=== PATIENT | female | born 1935 | race Caucasian/White ===

== ENCOUNTER 2019-05-25 11:09 | Outpatient (RCR) | payer MEDICARE, SELFPAY ==
[2019-02-24 11:40] LABS: INR 2.5; Prothrombin Time 26.4 Seconds (11.1-14.7)
[2019-04-13 12:26] LABS: Prothrombin Time 30.8 Seconds (11.1-14.7)
[2019-05-25 12:17] LABS: INR 2.3; Prothrombin Time 24.6 Seconds (11.1-14.7)
== END 2019-05-25 23:59 | disposition home or self-care (01) ==
LOC: ANHLAB 11:09
PROVIDERS: PCP Family Medicine; Visit Provider Internal Medicine Cardiovascular Disease
DX: Z51.81 Encounter for therapeutic drug level monitoring (principal); Z79.01 Long term (current) use of anticoagulants
CPT/HCPCS: 36415; 85610

== ENCOUNTER 2019-05-30 15:08 | Emergency (ER) | payer MEDICARE, SELFPAY ==
[2019-05-30 15:14] VITALS: BP 135/93; PULSE 76; RESP 20; TEMP 36.7; O2SAT 98
--- NOTE | 2019-05-30 15:40 | ED.FEMALEGU ---
HPI - Female Genitourinary General Chief complaint: Urogenital-Female Stated complaint: BURNING URINATION Source: patient Mode of arrival: ambulatory History of Present Illness HPI Narrative: 83-year-old female presents to urgent care with complaints of urinary frequency, urgency and pain since yesterday. Patient has been taking [id number] Azo with minimal relief. Patient denies fever, body aches, chills, nausea, vomiting or diarrhea. MD elicited complaint: dysuria Pertinent past history: recurrent UTIs Onset (ago): day(s) (1) Vaginal discharge: none Vaginal bleeding: none Relieving factors: none Associated symptoms: denies other symptoms Sexual activity: No Patient : No Related Data Home Medications Medication Instructions Recorded Confirmed calcium carbonate 600 mg (1,500 1 tablet PO BID 04/18/19 05/30/19 mg)-vitamin D3 200 unit tablet diltiazem HCl 240 mg 240 mg PO BID cap 04/18/19 05/30/19 capsule,extended release 24 hr furosemide 20 mg tablet 20 mg PO QAM 04/18/19 05/30/19 warfarin 4 mg tablet 4 mg PO DAILY 04/18/19 05/30/19 Allergies Allergy/AdvReac Type Severity Reaction Status Date / Time Penicillins Allergy Mild Rash Verified 05/30/19 15:23 erythromycin base Allergy Unknown Itching Verified 05/30/19 15:23 levothyroxine sodium Allergy Unknown Itching Verified 05/30/19 15:23 metoprolol Allergy Unknown Itching Verified 05/30/19 15:23 penicillin G Allergy Unknown Itching Verified 05/30/19 15:23 Sulfa (Sulfonamide Allergy Unknown Itching Verified 05/30/19 15:23 Antibiotics) Review of Systems Review of Systems: All systems reviewed & are unremarkable except as noted in HPI and below Constitutional: Constitutional: Denies chills and Denies fatigue ENT: Denies dysphagia, Denies dizziness, Denies epistaxis and Denies sore throat Cardiovascular: Cardiovascular: Denies chest pain, Denies rapid heart rate and Denies radiating jaw, neck or arm pain Respiratory: Respiratory: Denies cough, Denies dyspnea and Denies wheezing Gastrointestinal: Gastrointestinal: Denies abdominal pain, Denies constipation, Denies diarrhea, Denies nausea and Denies vomiting Genitourinary: Genitourinary: Denies abnormal vaginal bleeding, Reports nocturia, Reports dysuria, Denies flank pain, Denies urinary incontinence and Denies vaginal discharge Neurologic: Denies dizziness and Denies syncope [facility] Social History Social History Smoking status: Never smoker Alcohol intake: never Exam Const: General: healthy appearing and no acute distress Orientation/consciousness: patient oriented x3 Limitations: no limitations Resp: Effort & Inspection: normal respiratory effort Auscultation: clear to auscultation bilaterally Cardio: Rate: regular rate Rhythm: regular rhythm GI: GI Palp: Yes Soft to palpation, No Tenderness to palpation present (GI) and No Guarding due to palpation present (GI) Auscultation: normal bowel sounds : General: Yes bladder normal to palpation and Yes no CVA tenderness Back/Spine/Pelvis: Back: no CVA tenderness Skin: General skin exam: normal color Rashes: no rashes Neuro: General: patient oriented x3 and moves all extremities Psych: Mental Status: mental status grossly normal Affect: normal affect Attitude: cooperative Thought content: Yes Normal thought content present Course Vital Signs Vital signs: Vital Signs Temperature 36.7 C 05/30/19 15:14 Pulse Rate 76 05/30/19 15:14 Respiratory Rate 05/30/19 15:14 Blood Pressure 135/93 H 05/30/19 15:14 Pulse Oximetry 98 05/30/19 15:14 Temperature 36.7 C 05/30/19 15:14 Pulse Rate 76 05/30/19 15:14 Respiratory Rate 05/30/19 15:14 Blood Pressure 135/93 H 05/30/19 15:14 Pulse Oximetry 98 05/30/19 15:14 MDM - Female Genitourinary MDM Narrative Medical decision making narrative: Urinalysis results discussed with patient. Urine c
== END 2019-05-30 15:57 | disposition home or self-care (01) ==
PROVIDERS: Emergency Provider Nurse Practitioner Family; PCP Family Medicine
DX: N39.0 Urinary tract infection, site not specified (principal); I48.91 Unspecified atrial fibrillation; I10 Essential (primary) hypertension; E03.9 Hypothyroidism, unspecified; H26.9 Unspecified cataract
CPT/HCPCS: 81003; 87077; 87086; 87088; 87186; 99213; G0463

== ENCOUNTER 2020-08-26 09:57 | Emergency (ER) | payer MEDICARE, SELFPAY ==
[2020-08-26 10:08] VITALS: BP 148/63; PULSE 97; RESP 16; TEMP 36.9; O2SAT 94
--- NOTE | 2020-08-26 10:11 | ED.GENADULT ---
HPI - General Adult General Chief complaint: Urogenital-Female Stated complaint: Bladder complaint Time Seen by Provider: 08/26/20 10:12 Source: patient and RN notes reviewed Mode of arrival: ambulatory Limitations: no limitations History of Present Illness HPI narrative: 84-year-old female presents with urinary complaints for 1 day. Delaney reports increasing symptoms throughout the night. Dysuria consist of burning and urgency.? Azo, last today 05:00AM without relief. Denies fever. No concerns for STDs. Exacerbating factors urinating.? Denies hematuria, vaginal discharge, or vaginal bleeding. LMP post menopausal.? No flank pain. Denies nausea, vomiting, and abdominal pain.? Tolerating liquids well.? Remains active. The patient reports she have not been diagnosed with COVID-19. The patient reports she received [employer] COVID-19 vaccines. The patient reports she is not waiting for the results of a COVID-19 lab test. The patient reports she do not have chills, weakness, or fatigue. The patient reports she do not have a new or worsening cough or shortness of breath. Denies chest pain. The patient reports she do not have any rhinorrhea, congestion, sore throat, loss of taste or smell, and diarrhea. Denies recent traveling. Denies concerns for COVID-19 or exposures. At this time, patient is not suspected of having COVID-19. Some parts of this dictation were generated by voice recognition software and may contain typographical and/or grammatical inaccuracies. Related Data Home Medications Medication Instructions Recorded Confirmed calcium carbonate 600 mg (1,500 1 tablet PO BID 04/18/19 08/26/20 mg)-vitamin D3 200 unit tablet furosemide 20 mg tablet 20 mg PO QAM 04/18/19 08/26/20 warfarin 4 mg tablet 4 mg PO DAILY 04/18/19 08/26/20 Allergies Allergy/AdvReac Type Severity Reaction Status Date / Time Penicillins Allergy Mild Rash Verified 07/03/20 10:22 erythromycin base Allergy Unknown Itching Verified 07/03/20 10:22 levothyroxine sodium Allergy Unknown Itching Verified 07/03/20 10:22 metoprolol Allergy Unknown Itching Verified 07/03/20 10:22 penicillin G Allergy Unknown Itching Verified 07/03/20 10:22 Sulfa (Sulfonamide Allergy Unknown Itching Verified 07/03/20 10:22 Antibiotics) Review of Systems Review of Systems: Narrative: CONSTITUTIONAL: Denies fever, chills, sweats. EYES: Denies visual changes, redness, discharge. ENT: Denies rhinorrhea, congestion, sore throat, otalgia. CARDIOVASCULAR: Denies chest pain, palpitations, edema. RESPIRATORY: Denies dyspnea, wheezing, cough. GASTROINTESTINAL: Denies abdominal pain, nausea, vomiting, diarrhea. GENITOURINARY: Complains of dysuria (burning and urgency). Denies frequency, hematuria, abnormal discharge. SKIN: Denies rash or itching. MUSCULOSKELETAL: Denies acute back pain, joint pain, or myalgia. NEUROLOGIC: Denies numbness or focal weakness. PSYCHIATRIC: Denies anxiety or depression. All systems reviewed & are unremarkable except as noted in HPI and below. [facility] Past Medical History Medical History (Updated 08/27/20 @ 00:00 by [employer]) Cataract wear glasses Chronic a-fib Chronic kidney disease, stage III (moderate) [place] (hard of hearing) Hypertensive chronic kidney disease with stage 1 through stage 4 chronic kidney disease, or unspecified chronic kidney disease Hypothyroidism [facility] (current) use of anticoagulants Mixed hyperlipidemia Wrist fracture, right Surgical History Surgical History (Updated 08/26/20 @ 10:44 by GOOD Montelongo) History of eye surgery cataract surgery History of surgery on wrist RT Family History Family History (Updated 08/26/20 @ 10:37 by GOOD Montelongo) Father Bone cancer Mother Heart disease Social History Social History (Updated 08/26/20 @ 10:36 by GOOD Montelongo) Smoking status: Never smoker Tobacco type: cigarettes Second hand tobacco s
--- NOTE | 2020-08-26 10:33 | PC.NURSE ---
Pt drinking water, awaiting urine sample.
== END 2020-08-26 11:27 | disposition home or self-care (01) ==
PROVIDERS: Emergency Provider Nurse Practitioner Family; PCP Family Medicine
DX: R30.0 Dysuria (principal); I48.20 Chronic atrial fibrillation, unspecified; I13.10 Hypertensive heart and chronic kidney disease without heart failure, with stage 1 through stage 4 chronic kidney disease, or unspecified chronic kidney disease; N18.30 Chronic kidney disease, stage 3 unspecified; E03.9 Hypothyroidism, unspecified; E78.2 Mixed hyperlipidemia; Z79.01 Long term (current) use of anticoagulants
CPT/HCPCS: 81003; 87077; 87086; 87186; 99213; G0463

== ENCOUNTER 2020-12-05 11:14 | Outpatient (RCR) | payer MEDICARE, SELFPAY ==
[2020-09-12 07:55] LABS: Hematocrit 45.9 % (37.0-47.0); Hemoglobin 14.4 g/dL (12.0-15.0); Mean Corpuscular HGB Conc 31.4 g/dl (32-36); Mean Corpuscular Hemoglobin 29.4 pg (26-34); Mean Corpuscular Volume 93.7 fl (80-100); Mean Platelet Volume 11.8 fl (7.4-10.4); Platelet Count Result 218 k/mm3 (150-375); White Blood Count 8.8 K/mm3 (4.5-10.0)
[2020-09-12 08:05] LABS: INR 3.1; Prothrombin Time 32.8 Seconds (11.1-14.7)
[2020-09-12 08:12] LABS: Alanine Aminotransferase 16 U/L (4-35); Albumin Level 4.2 g/dL (3.5-5.1); Alkaline Phosphatase 72 U/L (38-126); Anion Gap 11 mmol/L (8-16); Aspartate Amino Transferase 28 U/L (14-36); Bilirubin,Total 0.7 mg/dL (0.2-1.3); Blood Urea Nitrogen 31 mg/dL (7-17); Calcium 9.3 mg/dL (8.4-10.2); Carbon Dioxide 24 mmol/L (22-30); Chloride 105 mmol/L (98-107); Estimated Glomerular Filt Rate 33; Glucose 122 mg/dL (65-105); Potassium 4.7 mmol/L (3.4-5.0); Sodium 140 mmol/L (137-145)
[2020-10-24 12:14] LABS: INR 3.6; Prothrombin Time 34.6 Seconds (11.1-14.7)
[2020-12-05 12:23] LABS: INR 2.9; Prothrombin Time 29.5 Seconds (11.1-14.7)
== END 2020-12-11 23:59 | disposition home or self-care (01) ==
LOC: ANHLAB 11:14
PROVIDERS: PCP Family Medicine; Referring Provider Family Medicine; Visit Provider Internal Medicine Cardiovascular Disease
DX: Z51.81 Encounter for therapeutic drug level monitoring (principal); I48.19 Other persistent atrial fibrillation; Z79.01 Long term (current) use of anticoagulants
CPT/HCPCS: 36415; 80053; 84443; 85027; 85610

== ENCOUNTER 2021-04-17 12:07 | Outpatient (RCR) | payer MEDICARE, SELFPAY ==
[2021-01-23 11:33] LABS: Alanine Aminotransferase 18 U/L (4-35); Albumin Level 4.3 g/dL (3.5-5.1); Alkaline Phosphatase 73 U/L (38-126); Anion Gap 11 mmol/L (8-16); Aspartate Amino Transferase 23 U/L (14-36); Bilirubin,Total 0.6 mg/dL (0.2-1.3); Blood Urea Nitrogen 28 mg/dL (7-17); Calcium 9.1 mg/dL (8.4-10.2); Carbon Dioxide 25 mmol/L (22-30); Chloride 104 mmol/L (98-107); Estimated Glomerular Filt Rate 43; Glucose 125 mg/dL (65-110); Potassium 4.2 mmol/L (3.4-5.0); Sodium 140 mmol/L (137-145)
[2021-01-23 11:36] LABS: INR 2.5; Prothrombin Time 26.3 Seconds (11.1-14.7)
[2021-03-04 13:09] LABS: INR 2.5; Prothrombin Time 26.6 Seconds (11.1-14.7)
[2021-04-17 12:31] LABS: INR 2.3; Prothrombin Time 24.7 Seconds (11.1-14.7)
== END 2021-04-23 23:59 | disposition home or self-care (01) ==
LOC: ANHLAB 12:07
PROVIDERS: PCP Family Medicine; Referring Provider Family Medicine; Visit Provider Internal Medicine Cardiovascular Disease
DX: Z51.81 Encounter for therapeutic drug level monitoring (principal); I48.19 Other persistent atrial fibrillation; Z79.01 Long term (current) use of anticoagulants
CPT/HCPCS: 36415; 80053; 84443; 85610

== ENCOUNTER 2021-07-30 11:11 | Outpatient (RCR) | payer MEDICARE, SELFPAY ==
[2021-06-05 14:44] LABS: INR 2.4; Prothrombin Time 25.7 Seconds (11.1-14.7)
[2021-07-30 11:53] LABS: INR 1.9; Prothrombin Time 21.4 Seconds (11.1-14.7)
== END 2021-09-03 23:59 | disposition home or self-care (01) ==
LOC: ANHLAB 11:11
PROVIDERS: PCP Family Medicine; Visit Provider Family Medicine
DX: Z51.81 Encounter for therapeutic drug level monitoring (principal); I48.19 Other persistent atrial fibrillation; Z79.01 Long term (current) use of anticoagulants
CPT/HCPCS: 36415; 85610

== ENCOUNTER 2021-08-21 10:09 | Emergency (ER) | payer MEDICARE, SELFPAY ==
[2021-08-21 10:18] VITALS: BP 132/74; PULSE 77; RESP 20; TEMP 36.2; O2SAT 93
--- NOTE | 2021-08-21 10:23 | ED.FEMALEGU ---
HPI - Female Genitourinary General Chief complaint: Urogenital-Female Stated complaint: uti symptoms Time Seen by Provider: 08/21/21 10:25 Source: patient Mode of arrival: ambulatory Limitations: no limitations History of Present Illness HPI Narrative: Delaney Phoenix is a 85-year-old female with a PMH of A. fib, chronic anticoagulation, hypokalemia, hypothyroid, who comes to [facility] with complaints of dysuria that started on Wednesday; she took Azo yesterday this has not changed her symptoms Related Data Home Medications Medication Instructions Recorded Confirmed calcium carbonate 600 mg-vitamin 1 tablet PO BID 04/18/19 08/21/21 D3 5 mcg (200 unit) tablet warfarin 4 mg tablet 4 mg PO DAILY 04/18/19 08/21/21 Allergies Allergy/AdvReac Type Severity Reaction Status Date / Time Penicillins Allergy Mild Rash Verified 08/21/21 10:18 erythromycin base Allergy Unknown Itching Verified 08/21/21 10:18 levothyroxine sodium Allergy Unknown Itching Verified 08/21/21 10:18 metoprolol Allergy Unknown Itching Verified 08/21/21 10:18 penicillin G Allergy Unknown Itching Verified 08/21/21 10:18 Sulfa (Sulfonamide Allergy Unknown Itching Verified 08/21/21 10:18 Antibiotics) Review of Systems Review of Systems: CONSTITUTIONAL: Denies fever, chills, sweats. EYES: Denies visual changes, redness, discharge. ENT: Denies rhinorrhea, congestion, sore throat, otalgia. CARDIOVASCULAR: Denies chest pain, palpitations, edema. RESPIRATORY: Denies dyspnea, wheezing, cough GASTROINTESTINAL: Denies abdominal pain, nausea, vomiting, diarrhea. GENITOURINARY: Has dysuria, hematuria, abnormal discharge SKIN: Denies rash or itching. NEUROLOGIC: Denies numbness, or focal weakness. PSYCHIATRIC: Denies anxiety or depression. 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 Mixed hyperlipidemia Obesity Venous stasis Wrist fracture, right Surgical History Surgical History History of eye surgery cataract surgery History of surgery on wrist RT Family History Family History Father Bone cancer Mother Heart disease Social History Social History Smoking status: Never smoker Tobacco type: cigarettes Second hand tobacco smoke exposure: No Alcohol intake: never Substance use: never Substance use type: does not use Gender identity (if verbalized by the patient): Female Sexual Orientation (if Verbalized by the Patient): Straight or Heterosexual Exam Narrative: GENERAL: This is a well-nourished, well-developed patient, in mild distress. HEAD: normocephalic, atraumatic. EYES: Sclera clear/white. Vision is grossly intact. EARS: External ears normal, . Hearing grossly intact. NOSE: External nose normal without nasal discharge, nares without redness, no rhinorrhea. THROAT: Mucous membranes moist, NECK: Neck supple, non-tender CARDIOVASCULAR: Regular rate and rhythm with S3 heart sound, no gallops, or rubs. RESPIRATORY: Clear to auscultation. Breath sounds equal bilaterally. No wheezes, rales, or rhonchi. GASTROINTESTINAL: Abdomen soft, rotund SKIN: warm, intact with no suspicious lesions or rash, good texture and turgor. NEURO: awake, alert, and oriented to person, place and time. There were no obvious focal neurologic abnormalities. Steady gait EXTREMITIES: Normal range of motion. BACK: Nontender without deformity Course Course Emergency Course: Patient comes to [facility] with complaints of dy
== END 2021-08-21 10:53 | disposition home or self-care (01) ==
PROVIDERS: Emergency Provider Nurse Practitioner; PCP Family Medicine
DX: N30.90 Cystitis, unspecified without hematuria (principal); I48.91 Unspecified atrial fibrillation; I12.9 Hypertensive chronic kidney disease with stage 1 through stage 4 chronic kidney disease, or unspecified chronic kidney disease; N18.30 Chronic kidney disease, stage 3 unspecified; E03.9 Hypothyroidism, unspecified; Z79.01 Long term (current) use of anticoagulants; E78.2 Mixed hyperlipidemia; E66.9 Obesity, unspecified; Z68.41 Body mass index [BMI] 40.0-44.9, adult; I87.8 Other specified disorders of veins
CPT/HCPCS: 81003; 87077; 87086; 87186; 99213; G0463

== ENCOUNTER 2021-09-02 10:01 | Emergency (ER) | payer MEDICARE, SELFPAY ==
--- NOTE | 2021-09-02 10:09 | ED.FEMALEGU ---
HPI - Female Genitourinary General Chief complaint: Urogenital-Female Stated complaint: uti symptoms Time Seen by Provider: 09/02/21 10:10 Source: patient and RN notes reviewed Mode of arrival: ambulatory Limitations: no limitations History of Present Illness HPI Narrative: 85-year-old female presented for complaint of urinary urgency and dysuria for about 4 days She states she was treated for UTI on 08/21/2021, completed the 5 days of antibiotics (Keflex) and symptoms returned about 3 days later. She has been taking Azo. Denies nausea, vomiting, hematuria, flank pain, abdominal pain, fevers or chills. Hx CKD, chronic afib, on anticoagulation. Related Data Home Medications Medication Instructions Recorded Confirmed calcium carbonate 600 mg-vitamin 1 tablet PO BID 04/18/19 08/21/21 D3 5 mcg (200 unit) tablet (Calcium 600 + D(3)) warfarin 4 mg tablet (Coumadin) 4 mg PO DAILY 04/18/19 08/21/21 Allergies Allergy/AdvReac Type Severity Reaction Status Date / Time Penicillins Allergy Mild Rash Verified 08/21/21 10:18 erythromycin base Allergy Unknown Itching Verified 08/21/21 10:18 levothyroxine sodium Allergy Unknown Itching Verified 08/21/21 10:18 metoprolol Allergy Unknown Itching Verified 08/21/21 10:18 penicillin G Allergy Unknown Itching Verified 08/21/21 10:18 Sulfa (Sulfonamide Allergy Unknown Itching Verified 08/21/21 10:18 Antibiotics) Review of Systems Review of Systems: CONSTITUTIONAL: Denies body aches, fever, chills, or sweats. CARDIOVASCULAR: Denies chest pain, palpitations, or edema. RESPIRATORY: Denies cough or dyspnea. GASTROINTESTINAL: Denies abdominal pain, nausea, vomiting, or diarrhea. GENITOURINARY: Reports dysuria, frequency, urgency, denies hematuria, flank pain SKIN: Denies rash, itching, or wounds. MUSCULOSKELETAL: Denies back pain or myalgia. 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 Mixed hyperlipidemia Obesity Venous stasis Wrist fracture, right Surgical History Surgical History History of eye surgery cataract surgery History of surgery on wrist RT Family History Family History Father Bone cancer Mother Heart disease Social History Social History Smoking status: Never smoker Tobacco type: cigarettes Second hand tobacco smoke exposure: No Alcohol intake: never Substance use: never Substance use type: does not use Gender identity (if verbalized by the patient): Female Sexual Orientation (if Verbalized by the Patient): Straight or Heterosexual Comments At time of signature, I have reviewed and agree with nursing past medical, surgical, social and family history unless otherwise noted. Please see nursing chart for further information. There is no relevant family history pertinent to the presenting complaint Exam Narrative: GENERAL: Well-appearing and in no acute distress. HEAD: Normocephalic EYES: EOMI. ENT: Mucous membranes pink and moist. NECK: Normal AROM. Supple. CHEST: No respiratory distress. Clear to auscultation. HEART: Irregular rhythm ABDOMEN: Soft, nontender, nondistended, large, normal active bowel sounds. No CVA tenderness MUSCULOSKELETAL: No bony tenderness. SKIN: Warm, dry, no rash. NEURO: No focal deficits. Alert and oriented x3. Gait steady. PSYCH: Normal affect. Course Course Emergency Course: Patient is aware of diagnosis, understands and agrees to treatment plan. Anticipatory
[2021-09-02 10:12] VITALS: BP 130/61; PULSE 81; RESP 16; TEMP 35.9; O2SAT 96
== END 2021-09-02 10:43 | disposition home or self-care (01) ==
PROVIDERS: Emergency Provider Nurse Practitioner Family; PCP Family Medicine
DX: N39.0 Urinary tract infection, site not specified (principal); I48.91 Unspecified atrial fibrillation; I12.9 Hypertensive chronic kidney disease with stage 1 through stage 4 chronic kidney disease, or unspecified chronic kidney disease; N18.30 Chronic kidney disease, stage 3 unspecified; E03.9 Hypothyroidism, unspecified; E78.2 Mixed hyperlipidemia; E66.9 Obesity, unspecified
CPT/HCPCS: 81003; 87077; 87086; 87186; 99213; G0463

== ENCOUNTER 2021-11-11 10:55 | Outpatient (RCR) | payer MEDICARE, SELFPAY ==
[2021-09-30 11:33] LABS: INR 2.5
[2021-11-11 11:34] LABS: Prothrombin Time 22.4 Seconds (11.1-14.7)
== END 2021-12-29 23:59 | disposition home or self-care (01) ==
LOC: ANHLAB 10:55
PROVIDERS: PCP Family Medicine; Visit Provider Internal Medicine Cardiovascular Disease
DX: I48.19 Other persistent atrial fibrillation (principal)
CPT/HCPCS: 36415; 85610

== ENCOUNTER 2022-03-11 12:58 | Outpatient (RCR) | payer MEDICARE, SELFPAY ==
[2022-01-15 12:16] LABS: INR 2.5
[2022-03-11 13:56] LABS: INR 2.8; Prothrombin Time 28.7 Seconds (11.1-14.7)
== END 2022-04-15 23:59 | disposition home or self-care (01) ==
LOC: ANHLAB 12:58
PROVIDERS: PCP Family Medicine; Visit Provider Internal Medicine Cardiovascular Disease
DX: I48.19 Other persistent atrial fibrillation (principal)
CPT/HCPCS: 36415; 85610

== ENCOUNTER 2022-04-11 19:57 | Inpatient (IN) | payer MEDICARE, SELFPAY ==
[2022-04-11] VITALS (31 sets, daily range): BP systolic 109–146; BP diastolic 52–84; PULSE 69–91; RESP 16–22; TEMP 36.3–36.8; O2SAT 85–100
--- NOTE | ~2022-04-11 | XR_ITS ---
EXAMINATION: XR chest 2V DATE: 04/15/2022 10:22 INDICATION: Congestive heart failure TECHNIQUE: Frontal and lateral views of the chest are obtained COMPARISON: 04/11/2022 FINDINGS: Cardiomegaly is noted. There is a diffuse interstitial pattern with interval improvement. S mall pleural effusions are present. There is no pneumothorax. Bibasilar airspace opacities persist bu t have improved. IMPRESSION: 1. Cardiomegaly with improving pulmonary edema. 2. Small pleural effusions. 3. Bibasilar airspace opacities with improvement, likely atelectasis. Reviewed, dictated and finalized at location B. 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
--- NOTE | ~2022-04-11 | XR_ITS ---
EXAMINATION: XR chest 1V portable Exam Date/Time: 04/11/2022 20:25 [employer] HISTORY: dyspnea X 3 DAYS, HX AFIB Comparison: 02/16/2014. RESULT: Lines, tubes, and devices: None. Lungs and pleura: The patient is rotated to the right. Bilateral reticular opacities with indistinct vessels. Linear and subsegmental right basilar opacities. Cardiomediastinal silhouette: Stable. Other: No acute osseous or upper abdominal finding. IMPRESSION: Pulmonary edema. Bibasilar atelectasis/consolidation. Reviewed, dictated and finalized at location K. E [employer]
--- NOTE | 2022-04-11 20:06 | ECG_ITS ---
Measurements Intervals [place] Rate: 83 P: [place]: 0 QRS: -9 QRSD: 72 T: 0 QT: 370 QTc: 435 Interpretive Statements ATRIAL FIBRILLATION VENTRICULAR PREMATURE COMPLEX LOW QRS VOLTAGE IN PRECORDIAL LEADS BORDERLINE R WAVE PROGRESSION, ANTERIOR LEADS CONSIDER INFERIOR INFARCT, AGE INDETERMINATE BASELINE ARTIFACT- I, II, III, AVR, AVL, V2, V5 ABNORMAL ECG NO PREVIOUS ECG AVAILABLE FOR COMPARISON Electronically Signed On 04-12-2022 8:01:03 BRANCH OFFICER by Justyn Rose D.O.
[2022-04-11 20:20] LABS: Basophils Percent Auto 0.4 % (0.2-1.2); Eosinophils Absolute Auto 0.2 K/mm3 (0-0.3); Eosinophils Percent Auto 1.8 % (0-4.4); Hematocrit 41.8 % (37.0-47.0); Immature Granulocyte Absolute 0.02 K/mm3 (0.00-0.031); Immature Granulocyte Percent A 0.2 % (0-0.5); Lymphocytes Absolute Auto 3.71 K/mm3 (0.9-3.2); Lymphocytes Percent Auto 35.8 % (18.3-44.2); Mean Corpuscular HGB Conc 31.1 g/dl (32-36); Mean Corpuscular Hemoglobin 29.5 pg (26-34); Mean Platelet Volume 10.8 fl (7.4-10.4); Monocytes Absolute Auto 0.9 K/mm3 (0.1-0.6); Neutrophils Absolute Auto 5.5 K/mm3 (1.3-6.7); Neutrophils Percent Auto 52.8 % (45.5-73.1); Platelet Count Result 269 k/mm3 (150-375); Red Cell Distribution Width 15.1 % (11.5-14.5); White Blood Count 10.4 K/mm3 (4.5-10.0)
--- NOTE | 2022-04-11 20:30 | PC.NURSE ---
when moving pt to bed, pt was OOB, having trouble catching breath o2 sat 85% placed on 2l NC, Sat increased to 96%
[2022-04-11 20:34] LABS: Alanine Aminotransferase 25 U/L (6-35); Albumin Level 4.2 g/dL (3.5-5.1); Alkaline Phosphatase 87 U/L (38-126); Anion Gap 6 mmol/L (8-16); Aspartate Amino Transferase 36 U/L (14-36); Bilirubin,Total 0.6 mg/dL (0.2-1.3); Blood Urea Nitrogen 27 mg/dL (7-17); Calcium 8.6 mg/dL (8.4-10.2); Carbon Dioxide 27 mmol/L (22-30); Chloride 109 mmol/L (98-107); Estimated Glomerular Filt Rate 47; Glucose 133 mg/dL (65-110); Sodium 142 mmol/L (137-145)
--- NOTE | 2022-04-11 20:41 | ED.GENADULT ---
HPI - General Adult General Chief complaint: Shortness of Breath/Dyspnea Stated complaint: shortness of breath x 3 days Time Seen by Provider: 04/11/22 20:07 History of Present Illness HPI narrative: This is an 86-year-old female with history of high blood pressure presenting ED with shortness of breath. She has been having progressively worse shortening breath over the last 3 days. She denies fever, chills, chest pain, abdominal pain, urinary symptoms. She has chronic lower extremity edema due to venous insufficiency. She is on warfarin for atrial fibrillation. Related Data Home Medications Medication Instructions Recorded Confirmed calcium carbonate 600 mg-vitamin 1 tablet PO BID 04/18/19 08/21/21 D3 5 mcg (200 unit) tablet (Calcium 600 + D(3)) warfarin 4 mg tablet (Coumadin) 4 mg PO DAILY 04/18/19 08/21/21 Allergies Allergy/AdvReac Type Severity Reaction Status Date / Time Penicillins Allergy Mild Rash Verified 08/21/21 10:18 erythromycin base Allergy Unknown Itching Verified 08/21/21 10:18 levothyroxine sodium Allergy Unknown Itching Verified 08/21/21 10:18 metoprolol Allergy Unknown Itching Verified 08/21/21 10:18 penicillin G Allergy Unknown Itching Verified 08/21/21 10:18 Sulfa (Sulfonamide Allergy Unknown Itching Verified 08/21/21 10:18 Antibiotics) [facility] Past Medical History Medical History Cataract wear glasses Chronic a-fib Chronic kidney disease, stage III (moderate) [place] (hard of hearing) Hypertensive chronic kidney disease with stage 1 through stage 4 chronic kidney disease, or unspecified chronic kidney disease Hypothyroidism [facility] (current) use of anticoagulants Mixed hyperlipidemia Obesity Venous stasis Wrist fracture, right Surgical History Surgical History History of eye surgery cataract surgery History of surgery on wrist RT Family History Family History Father Bone cancer Mother Heart disease Social History Social History Smoking status: Never smoker Tobacco type: cigarettes Second hand tobacco smoke exposure: No Alcohol intake: never Substance use: never Substance use type: does not use Gender identity (if verbalized by the patient): Female Sexual Orientation (if Verbalized by the Patient): Straight or Heterosexual Exam Narrative: APPEARANCE: No apparent distress. Head: atraumatic. EYES: EOMI, NOSE: Atraumatic NECK: Trachea midline RESPIRATORY: patient has 3-4 word dyspnea, scattered expiratory wheezing, bibasilar rales CARDIOVASCULAR Irregularly irregular, chronic peripheral edema with sclerosis of the skin ABDOMINAL: Non-distended, nontender no guarding or rebound MUSCULOSKELETAl: No obvious deformities NEURO: Alert. Moving 4/4 extremities SKIN:: Warm, dry. Normal color PSYCHIATRIC: Normal affect Course Vital Signs Vital signs: Vital Signs Temperature 98.2 F 04/11/22 20:02 Pulse Rate 91 04/11/22 20:02 Respiratory Rate 20 04/11/22 20:02 Blood Pressure 142/58 H 04/11/22 20:02 Pulse Oximetry 93 04/11/22 20:02 Oxygen Delivery Room Air 04/11/22 20:02 Temperature 98.2 F 04/11/22 20:02 Pulse Rate 73 04/11/22 22:01 Respiratory Rate 16 04/11/22 22:00 Blood Pressure 120/65 04/11/22 22:01 Pulse Oximetry 98 04/11/22 22:01 Oxygen Delivery Nasal Cannula 04/11/22 20:19 Oxygen Flow Rate 4 04/11/22 20:19 Medical Decision Making MDM Narrative Medical decision making narrative: DDX includes but is not limited to: CHF, COPD, pneumonia, viral illness, pulmonary embolism Co-morbidities complicating care: hypertension, atrial fibrillation External Chart Review: None Hx from independent Sources: Niece -Neena, nephew-Garfield Discussion of Management: marti di
[2022-04-11 20:56] LABS: Influenza A QL RT-PCR Negative (Negative); Influenza B QL RT-PCR Negative (Negative); RSV RNA, RT-PCR Negative (Negative); SARS-CoV-2 RNA PCR Negative
[2022-04-11 21:18] LABS: NT Pro B Type Natriuretic Pept 1100 pg/mL (5-100); Troponin I < 0.012 ng/mL (0.000-0.034)
[2022-04-11 21:23] LABS: INR 3.2; Partial Thromboplastin Time 43.9 SECONDS (22.3-36.8); Prothrombin Time 32.1 Seconds (11.1-14.7)
[2022-04-11] MEDS: FUROSEMIDE INJ 40 MG/4 ML VIAL IV PUSH (22:16)
[2022-04-12] VITALS (8 sets, daily range): BP systolic 119–142; BP diastolic 59–66; PULSE 64–75; RESP 16–22; TEMP 36.2–36.6; O2SAT 91–96
[2022-04-12 00:03] LABS: Troponin I < 0.012 ng/mL (0.000-0.034)
--- NOTE | 2022-04-12 01:00 | ADMGEN ---
This patient, Delaney Aguirre, was admitted to [facility] Surg Room 305-02 at 2335. Patient/family oriented to hospital policies and general routines including ID bracelet, bed and alarms, visiting hours, pain management, procedures, bathroom and other care routines, personal items, smoking policy, room service/diet, and visiting hours. Information on how to activate the Rapid Response Team has been discussed. Patient/Family are encouraged to report perceived risks to care and to ask questions if they do not understand what they are told or what they should do.
--- NOTE | 2022-04-12 01:09 | PM.IMHP ---
H&P: HPI History of Present Illness Date/Time: 04/11/22 23:50 Chief Complaint: Shortness of breath Narrative: Pleasant 86-year-old female with a past medical history of hypothyroidism, chronic kidney disease stage 3 and chronic atrial fibrillation on chronic anticoagulation Coumadin who presented to the ER with shortness of breath. The patient reports that she has actually been having progressive shortness of breath for at least 3 weeks but it acutely worsened about 3 days ago. She reports that she has chronic lower extremity swelling and does not pay much attention to her lower extremity so she does not know for edema is worse. She thinks that her shoes may be a little bit tighter than usual. She definitely thinks that her pants are tighter than usual. She states that she has a scale at home but it is been broken for over a year so she does not weighed herself. She states that her shortness of breath is worse with activity and that she cannot sleep well over the last couple of weeks due to orthopnea. The only time she is getting any sleep is if she sits in her recliner. She does not know if she snores. She states that her shortness of breath has become so bad that she cannot or for more than a couple of minutes without extreme were could breathing. She denies palpitations, cough or congestion. She has been compliant with her cardiac medications. Although in the past she has been noncompliant with close monitoring of her INR. Her last echocardiogram was in 2006. She follows with Dr. Chloé Toth. She does not have a prior history of heart failure. Review of Systems Review of Systems: 12 systems were reviewed with pertinent positives and negatives per HPI. Except as documented in the HPI, all other systems were reviewed and are negative. [facility] Past Medical History Medical History (Updated 04/12/22 @ 08:33 by Gaviota Ibarra DO) Chronic a-fib Chronic kidney disease, stage III (moderate) [place] (hard of hearing) Hypothyroidism [facility] (current) use of anticoagulants Mixed hyperlipidemia Patient refuses statins Obesity Venous stasis Wrist fracture, right Surgical History Surgical History (Updated 04/12/22 @ 08:16 by Gaviota Ibarra DO) History of tonsillectomy and adenoidectomy Status post cataract extraction of both eyes with insertion of intraocular lens Status post open reduction with internal fixation of fracture Right wrist fracture Family History Family History Father Bone cancer Mother Heart disease Social History Social History (Updated 04/12/22 @ 08:15 by Gaviota Ibarra DO) Social History: She lives in her own home. She was to her 1st for 23 years before he and got remarried in for 26 years prior to being in 2005. She never had any children. 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 Code status: DNR/DNI (however the patient would be amendable to synchronized cardioversion in the setting of acute cardiac arrhythmia. She would not want cardiopulmonary resuscitation in the set of cardiopulmonary arrest.) Healthcare power of windows desktop support: Padmaja Ocampo (the patient's sister who is 60 years old.) Smoking status: Never smoker Second hand tobacco smoke exposure: No Alcohol intake: never Substance use: never Substance use type: does not use Lack of Transportation: No Lack of Food: Never True Current Housing: I Have Housing Concerned About Future Housing: No Difficulty Paying Gas/Electric Bills: No Difficulty Paying for Meds: No Currently Unemployed: No Education: High School Diploma/GED Difficulty w/ Childcare or Family Care: No Additional occupation/education comments: 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 Gender identity (if verbalized by the patient): Female Sexual Orientation (if Verbal
[2022-04-12] MEDS: TELMISARTAN 40 MG TABLET PO (08:34)
[2022-04-12] MEDS: FUROSEMIDE INJ 40 MG/4 ML VIAL IV PUSH ×2 (08:34→16:30)
[2022-04-12] MEDS: THYROID 30 MG TABLET 60 MG PO (08:34)
[2022-04-12] MEDS: ENOXAPARIN 40 MG/0.4 ML SYRINGE SUB-Q (08:35)
[2022-04-12 09:37] LABS: Hematocrit 42.6 % (37.0-47.0); Mean Corpuscular HGB Conc 30.5 g/dl (32-36); Mean Corpuscular Hemoglobin 29.5 pg (26-34); Mean Corpuscular Volume 96.6 fl (80-100); Mean Platelet Volume 10.9 fl (7.4-10.4); Platelet Count Result 247 k/mm3 (150-375); Red Blood Count 4.41 M/mm3 (4.2-5.4)
[2022-04-12 09:51] LABS: INR 3.4; Prothrombin Time 33.3 Seconds (11.1-14.7)
[2022-04-12 09:52] LABS: Anion Gap 8 mmol/L (8-16); Blood Urea Nitrogen 23 mg/dL (7-17); Calcium 8.5 mg/dL (8.4-10.2); Carbon Dioxide 31 mmol/L (22-30); Chloride 105 mmol/L (98-107); Estimated Glomerular Filt Rate 47; Glucose 106 mg/dL (65-110); Magnesium 2.4 mg/dL (1.6-2.3); Potassium 3.7 mmol/L (3.4-5.0); Sodium 144 mmol/L (137-145)
--- NOTE | 2022-04-12 12:18 | PM.CNCAR ---
Assessment and Plan Assessment and plan (1) CHF (congestive heart failure): Code(s): I50.9 - Heart failure, unspecified Status: Acute Assessment and Plan: 86-year-old female with hypertension, persistent atrial fibrillation on chronic anticoagulation with warfarin, CKD, hypothyroidism on thyroxine replacement. Patient admitted to the hospital with worsening shortness of breath. Clinical presentation consistent with CHF. EKG shows atrial fibrillation with controlled ventricular response. Troponin x2 [place] [address]. INR 3.2 at presentation. Chest x-ray shows Pulmonary edema. Bibasilar atelectasis/consolidation. TSH elevated at 7.45. Influenza and COVID-19 negative. -IV diuresis with furosemide. Monitor electrolytes and renal function. Switch to p.o. furosemide when volume status improves. She will need maintenance diuresis as an outpatient. - Patient is currently rate controlled with diltiazem, and anticoagulated with warfarin. Echocardiogram with Doppler is pending. If patient has LV systolic dysfunction, then switch diltiazem to beta-юлия. Patient has been on chronic anticoagulation with warfarin. She states that she was offered 1 of the DOACs in the past but chose to stay on warfarin. - patient has hypothyroidism and is on thyroxine replacement. Current TSH is elevated. Optimize thyroxine supplementation as necessary. Management as per primary team. (2) Atrial fibrillation with controlled ventricular response: Code(s): I48.91 - Unspecified atrial fibrillation Status: Acute Assessment and Plan: see management above. History of Present Illness History of Present Illness Consult date/time: 04/12/22 12:18 Reason For Visit: CHF NEW Narrative: DATE OF CONSULT: 04/12/2022 REASON FOR CONSULT: CHF REQUESTING PHYSICIAN:Gaviota Ibarra DO CHIEF COMPLAINT:Worsening shortness of breath HPI: 86-year-old female with hypertension, persistent atrial fibrillation on chronic anticoagulation with warfarin, CKD, hypothyroidism on thyroxine replacement. Patient follows up with Dr. Toth for cardiovascular care. She presented to [facility] on 04/11/2022 with worsening shortness of breath. Patient states that she has been experiencing worsening dyspnea on exertion for about 3 weeks, which worsened further in last 3 days. Her activity is limited due to low back pain. She has chronic lower extremity swelling which has been attributed to venous insufficiency. She denies chest pain, palpitation, dizziness or syncope. She reports compliance with outpatient diuretic treatment with furosemide. Patient has history of persistent atrial fibrillation, and is rate controlled and anticoagulated with warfarin. She states that she was offered 1 of the direct oral anticoagulants, but patient preferred to stay on warfarin. Review of [facility] medical records indicate that patient had remote echocardiogram which showed normal LV systolic function. EKG on my personal evaluation showed atrial fibrillation with controlled ventricular response, PVC versus aberrantly conducted beat, low voltage, possible inferior infarct, age undetermined. Troponin x2 [place] [address]. INR 3.2 at presentation. Chest x-ray shows Pulmonary edema. Bibasilar atelectasis/consolidation. TSH elevated at 7.45. Influenza and COVID-19 negative. Review of Systems Review of Systems: General: Positive for fatigue Psychological: Negative for anxiety, depression Ophthalmic: negative for loss of vision ENT: Negative for epistaxis, headaches Allergy and immunology: Negative for hives, nasal congestion Hematologic and lymphatic: Negative for overt bleeding problems Endocrine: Negative for hot flashes, palpitations Respiratory: Negative for cough, hemoptysis Cardiovascular: Negative for chest pain, positive for dyspnea on mild exertion, lower extremity swelling G
--- NOTE | 2022-04-12 15:56 | WPDPN ---
Progress Note: A&P Assessment and Plan (1) New onset of congestive heart failure: Code(s): I50.9 - Heart failure, unspecified Status: Acute Assessment and Plan: per cardiology IV diuresis with furosemide Monitor electrolytes and renal function.? Switch to p.o. furosemide when volume status improves.? She will need maintenance diuresis as an outpatient. Patient is currently rate controlled with diltiazem, and anticoagulated with warfarin.? Echocardiogram with Doppler is pending.? If patient has LV systolic dysfunction, then switch diltiazem to beta-юлия.? 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 The patient denies CP, palpitation, extremity numbness, lightheadedness, dizziness, constipation, diarrhea, chills, or fever. Review of Systems Review of Systems: A 14 organ system Review of Systems was performed and pertinent positives included in the HPI, otherwise remaining ROS is negative. Exam Narrative: GENERAL: This is a well-nourished, well-developed patient, in no apparent distress. HEAD: normocephalic, atraumatic. EYES: PERRL. Sclera clear/white. Vision is grossly intact. EARS: External ears normal, auditory canals clear and without drainage, TMs normal without perforation. Hearing grossly intact. NOSE: External nose normal with no obvious nasal discharge, nares without redness, no rhinorrhea. THROAT: Mucous membranes moist, posterior pharynx clear. NECK: Neck supple, non-tender without lymphadenopathy, masses or thyromegaly. CARDIOVASCULAR: Regular rate and irregular rhythm without murmurs, gallops, or rubs. RESPIRATORY: Coarse throughout. GASTROINTESTINAL: Abdomen soft, non-tender, nondistended. Bowel sounds are active. No hepato-splenomegaly, or palpable masses. No guarding. SKIN: Erythema to bilateral lower extremities with dry scaly skin no warmth noted. NEURO: awake, alert, and oriented to person, place and time. There were no obvious focal neurologic abnormalities. EXTREMITIES: Normal range of motion. No edema. No calf tenderness. Objective Data Vital Signs Vital Signs: Vital Signs - 24 hr 04/11/22 20:02 04/11/22 20:19 04/11/22 20:12 Temperature 98.2 F Pulse Rate 91 90 Respiratory Rate 20 22 H Blood Pressure 142/58 H Pulse Oximetry 93 100 98 Oxygen Delivery Room Air Nasal Cannula Oxygen Flow Rate 4 04/11/22 20:16 04/11/22 20:17 04/11/22 20:30 Temperature Pulse Rate 82 78 Respiratory Rate 18 18 18 Blood Pressure 130/52 L Pulse Oximetry 98 99 96 Oxygen Delivery Oxygen Flow Rate 04/11/22 20:45 04/11/22 21:00 04/11/22 21:14 Temperature Pulse Rate 84 79 82 Respiratory Rate 19 18 Blood Pressure 133/60 Pulse Oximetry 98 97 97 Oxygen Delivery Oxygen Flow Rate 04/11/22 21:15 04/11/22 21:16 04/11/22 21:30 Temperature Pulse Rate 78 84 79 Respiratory Rate Blood Pressure 137/68 Pulse Oximetry 96 97 98 Oxygen Delivery Oxygen Flow Rate 04/11/22 21:31 04/11/22 21:45 04/11/22 21:46 Temperature Pulse Rate 76 71 76 Respiratory Rate Blood Pressure 138/77 135/58 L Pulse Oximetry 98 97 97 Oxygen Delivery Oxygen Fl
[2022-04-12] MEDS: WARFARIN (*PBKC) 2 MG TABLET PO (16:30)
[2022-04-13] VITALS (9 sets, daily range): BP systolic 106–140; BP diastolic 53–67; PULSE 62–82; RESP 17–21; TEMP 36–36.2; O2SAT 90–96
--- NOTE | 2022-04-13 | ECHO_ITS ---
Patient Info Name: Delaney Aguirre Age: 86 years : 1935 Gender: Female Ht: 60 in Wt: 225 lbs BSA: 2.14 m2 HR: 78 bpm BP: 142 / 66 mmHg Heart Rhythm: Atrial Fibrillation Technical Quality: Fair Exam Date: 04/13/2022 11:09 AM Exam Location: [facility] Pulmonary Exam Room: [facility] Patient Status: Inpatient Admit Date: 04/11/2022 Staff Ordering Physician: Gaviota Ibarra DO Metal Baler: Lia Parker RCS Attending Provider: Julienne Vogt Referring Physician: Fred JONES; Exam Type: CA echo dop color flow w con Study Info Indications - CHF Complete two-dimensional, color flow and Doppler transthoracic echocardiogram is performed with contrast to opacify the left ventricle and to improve the deliniation of the left ventricle endocardial borders. Contrast/Agitated Saline Contrast/Ag. Saline: Definity Amount: 2.00 ml Administered By: Lia Parker Existing IV Access: Yes IV Access Condition: patent with no signs of infiltration Summary 1. Normal left ventricular size thickness and systolic function. 2. Severe biatrial dilation. 3. Trivial mitral regurgitation. 4. Mild tricuspid regurgitation. 5. Mildly sclerotic aortic valve which is not stenotic. 6. Atrial fibrillation. Left Ventricle Left ventricular chamber dimension is normal. Left ventricular systolic function is normal, estimated at Empty. The left ventricular diastolic function is indeterminate. Right Ventricle Right ventricular chamber dimension is moderately enlarged. Right ventricular systolic function is reduced. Left Atria Left atrial chamber dimension is severely enlarged. Right Atria Right atrial chamber dimension is severely enlarged. Aortic Valve The aortic valve is trileaflet. There is mild aortic valve sclerosis. Pulmonic Valve The pulmonic valve is not well visualized. Mitral Valve The mitral valve has normal leaflets. There is trace mitral valve regurgitation. The mitral valve annulus is mildly calcified. Tricuspid Valve The tricuspid valve leaflets are normal. There is mild tricuspid valve regurgitation. Pericardium/Pleural The pericardium appears normal. Aorta The aortic root size at the sinus of Valsalva is normal. Left Ventricular Outflow Tract Name Value Normal LVOT 2D LVOT Diameter 2.03 cm LVOT Doppler LVOT Peak Gradient 5 mmHg LVOT Mean Gradient 3 mmHg LVOT VTI 24.33 cm LVOT VTI/AV VTI Ratio 0.99 LVOT Stroke Volume 78.46 ml LVOT CO 16.17 l/min LVOT CI 7.55 L/min/m2 Pulmonic Valve Name Value Normal PV Doppler PV Peak Gradient
[2022-04-13] MEDS: THYROID 30 MG TABLET 60 MG PO (09:03)
[2022-04-13] MEDS: TELMISARTAN 40 MG TABLET PO (09:03)
[2022-04-13] MEDS: FUROSEMIDE INJ 40 MG/4 ML VIAL IV PUSH ×2 (09:04→17:48)
--- NOTE | 2022-04-13 09:04 | PM.PNCARD ---
Progress Note: A&P Assessment and Plan (1) CHF (congestive heart failure): Code(s): I50.9 - Heart failure, unspecified Status: Acute Assessment and Plan: 86-year-old female with hypertension, persistent atrial fibrillation on chronic anticoagulation with warfarin, CKD, hypothyroidism on thyroxine replacement. Patient admitted to the hospital with worsening shortness of breath. Clinical presentation consistent with CHF. EKG shows atrial fibrillation with controlled ventricular response. Troponin x2 [place] [address]. INR 3.2 at presentation. Chest x-ray shows Pulmonary edema. Bibasilar atelectasis/consolidation. TSH elevated at 7.45. Influenza and COVID-19 negative. Continue IV diuresis. Awaiting echocardiogram results. Continue rate control strategy. Anticoagulation with warfarin. Replace potassium as needed. BMP in the morning -IV diuresis with furosemide. Monitor electrolytes and renal function. Switch to p.o. furosemide when volume status improves. She will need maintenance diuresis as an outpatient. - Patient is currently rate controlled with diltiazem, and anticoagulated with warfarin. Echocardiogram with Doppler is pending. If patient has LV systolic dysfunction, then switch diltiazem to beta-юлия. Patient has been on chronic anticoagulation with warfarin. She states that she was offered 1 of the DOACs in the past but chose to stay on warfarin. - patient has hypothyroidism and is on thyroxine replacement. Current TSH is elevated. Optimize thyroxine supplementation as necessary. Management as per primary team. (2) Atrial fibrillation with controlled ventricular response: Code(s): I48.91 - Unspecified atrial fibrillation Status: Acute Assessment and Plan: see management above. Subjective Date/time seen: 04/13/22 09:04 Interval history: 86-year-old with history of CHF, atrial fibrillation anticoagulation. Admitted was worsening shortness of breath and heart failure Date of service 04/13/2022: She is doing bit better today. She is less short of breath. Swelling seems to be improved. She has no chest pain. Review of Systems Review of Systems: All systems reviewed & are unremarkable except as noted in HPI and below Constitutional: Constitutional: Denies body ache(s) Eyes: Eyes: Denies no additional eye complaints ENT: Denies Normal hearing present Comments: Hard of hearing Cardiovascular: Cardiovascular: Reports pedal edema and Reports leg edema Respiratory: Respiratory: Reports dyspnea Gastrointestinal: Gastrointestinal: Denies abdominal pain Genitourinary: Genitourinary: Denies hematuria Musculoskeletal: Musculoskeletal: Denies back pain Neurologic: Denies Abnormal speech present Psychiatric: Psychiatric: Denies anxiety Endocrine: Endocrine: Denies excessive sweating Hematologic/Lymphatic: Hematologic/Lymphatic: Denies easy bleeding Allergic/Immunologic: Allergic/Immunologic: Denies GI upset with certain foods Exam Narrative: PHYSICAL EXAMINATION: GENERAL: obese, pleasant female, Alert, oriented, no acute distress MENTAL STATUS: affect appropriate to mood EYES: Extraocular movements intact, no pallor EARS: External ears appear normal, hearing grossly normal NOSE: Normal and patent, no discharge MOUTH: Mucous membranes moist, tongue normal NECK: Supple, no JVD CHEST: coarse breath sounds bilaterally HEART: Normal rate, irregularly irregular rhythm ABDOMEN: Soft, nontender NEUROLOGICAL: Alert, oriented, normal speech, no gross motor deficits MUSCULOSKELETAL: No major deformity, no amputation EXTREMITIES: bilateral pedal edema with erythema SKIN: erythema lower extremities PSYCHIATRIC: Normal mood, appropriate affect Objective Data Vital Signs Vital Signs: Vital Signs - 24 hr 04/12/22 14:30 04/12/22 16:00 04/12/22 18:13 Temperature 36.6 C Pulse Rate 72 64 Respirat
--- NOTE | 2022-04-13 11:19 | PM.IMPN ---
Progress Note: A&P Assessment and Plan (1) New onset of congestive heart failure: Code(s): I50.9 - Heart failure, unspecified Status: Acute Assessment and Plan: Co-management with cardiology IV diuresis with furosemide Monitor electrolytes and renal function.? Switch to p.o. furosemide when OK by Cardiology. They recommend continuing IV today. She will need maintenance diuresis as an outpatient. Patient is currently rate controlled with diltiazem, and anticoagulated with warfarin.? She chooses to continue on Warfarin instead of switching to a DOAC. Echocardiogram with Doppler is pending.? If patient has LV systolic dysfunction, then switch diltiazem to beta-юлия.? Continue 1L fluid restriction. Wean oxygen as tolerated. (2) Atrial fibrillation: Code(s): I48.91 - Unspecified atrial fibrillation Status: Chronic Assessment and Plan: - Chronic in nature. Continue Coumadin therapy. (3) Hypothyroidism: Code(s): E03.9 - Hypothyroidism, unspecified Status: Chronic Assessment and Plan: - TSH is 7.450. Free T4 ordered today. - Continue current dose of thyroid tablet pending results of T4. - Pt. reportedly is allergic to Levothyroxine. 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 - Continue home dose of warfarin and adjust according to the INR. - Check INR in AM. (5) Kidney disease: Code(s): N28.9 - Disorder of kidney and ureter, unspecified Status: Acute Assessment and Plan: Patient at baseline Avoid nephrotoxic agents Will renal dose medication Time Spent With Patient Time with patient: 15 - 25 minutes Subjective Date/time seen: 04/13/22 1621 This patient was examined today at the bedside interval assessment without any new signs of acute distress. She endorses that she no longer feels dyspneic and she no longer has a cough. She is waiting to have her echocardiogram performed and Cardiology has already evaluated this they recommend continuing IV diuresis today with Lasix and are awaiting her ECHO results for further treatment decisions. Pt. denies any CP and states she feels her swelling of her extremities is better today. Review of Systems Review of Systems: All systems reviewed & are unremarkable except as noted in HPI and below Exam Const: General: comfortable and no acute distress HENMT: Mouth: Yes moist mucous membranes Eyes: General: appearance normal, both eyes and all related structures Sclera: sclerae normal Pupils: Equal, round and reactive pupils present EOM: EOMs intact bilaterally Neck: Neck: supple and no JVD Lymphatic: lymphadenopathy not noted Resp: Effort & Inspection: normal respiratory effort Auscultation: diminished lung sounds diffuse (all lobes) Cardio: Rate: regular rate Rhythm: regular rhythm Heart sounds: no gallops, no murmurs and no rubs Other: Mild edema to the BLE without any pitting. GI: Inspection: non-distended GI Palp: Yes Soft to palpation, No Tenderness to palpation present (GI) and No Guarding due to palpation present (GI) Auscultation: normal bowel sounds Skin: General skin exam: normal color, no rashes or lesions noted and no erythema Lesions: no lesions noted Rashes: no rashes noted Wounds: no wounds Neuro: General: gait normal Speech: normal speech Motor exam (neuro): 5/5 motor strength present throughout and Normal motor muscle tone present throughout Sensory Exam: normal sensation Extrem: General: edema (trace, non-pitting to the BLE.) Psych: Mental Status: mental status grossly normal Affect: normal affect Objective Data Vital Signs Vital Signs: Vital Signs - 24 hr 04/12/22 14:30 04/12/22 16:00 04/12/22 18:13 Temperature 97.8 F Pulse Rate 72 64 Respiratory Rate 16 Blood Pressure 133/59 L Pul
[2022-04-13] MEDS: PERFLUTREN LIPID MICROSPHERES 1.5 ML VIAL DILUTED TO 10 ML TOTAL VOLUME IV PUSH (11:40)
[2022-04-13 12:59] LABS: Free T4 Free Thyroxine 0.75 ng/mL (0.78-2.19)
[2022-04-13] MEDS: WARFARIN (*PBKC) 4 MG TABLET PO (17:48)
[2022-04-14] VITALS (9 sets, daily range): BP systolic 114–127; BP diastolic 56–75; PULSE 62–75; RESP 16–19; TEMP 36.2–36.4; O2SAT 90–92
[2022-04-14 07:05] LABS: Basophils Absolute Auto 0.1 K/mm3 (0.0-0.1); Basophils Percent Auto 0.6 % (0.2-1.2); Eosinophils Absolute Auto 0.3 K/mm3 (0-0.3); Eosinophils Percent Auto 2.8 % (0-4.4); Hematocrit 42.3 % (37.0-47.0); Hemoglobin 12.9 g/dL (12.0-15.0); Immature Granulocyte Absolute 0.03 K/mm3 (0.00-0.031); Immature Granulocyte Percent A 0.3 % (0-0.5); Lymphocytes Absolute Auto 2.28 K/mm3 (0.9-3.2); Lymphocytes Percent Auto 25.1 % (18.3-44.2); Mean Corpuscular HGB Conc 30.5 g/dl (32-36); Mean Corpuscular Hemoglobin 29.1 pg (26-34); Mean Corpuscular Volume 95.5 fl (80-100); Monocytes Percent Auto 10.8 % (2.6-8.5); Neutrophils Absolute Auto 5.5 K/mm3 (1.3-6.7); Neutrophils Percent Auto 60.4 % (45.5-73.1); Platelet Count Result 244 k/mm3 (150-375); Red Blood Count 4.43 M/mm3 (4.2-5.4); Red Cell Distribution Width 14.7 % (11.5-14.5); White Blood Count 9.1 K/mm3 (4.5-10.0)
[2022-04-14 07:18] LABS: Alanine Aminotransferase 22 U/L (6-35); Albumin Level 3.8 g/dL (3.5-5.1); Alkaline Phosphatase 75 U/L (38-126); Anion Gap 5 mmol/L (8-16); Aspartate Amino Transferase 26 U/L (14-36); Bilirubin,Total 0.7 mg/dL (0.2-1.3); Blood Urea Nitrogen 31 mg/dL (7-17); Calcium 8.3 mg/dL (8.4-10.2); Carbon Dioxide 32 mmol/L (22-30); Chloride 103 mmol/L (98-107); Estimated Glomerular Filt Rate 42; Glucose 107 mg/dL (65-110); Magnesium 2.3 mg/dL (1.6-2.3); Potassium 3.6 mmol/L (3.4-5.0); Sodium 140 mmol/L (137-145)
[2022-04-14 07:29] LABS: INR 3.2; Prothrombin Time 31.5 Seconds (11.1-14.7)
[2022-04-14] MEDS: THYROID 30 MG TABLET 60 MG PO (08:52)
[2022-04-14] MEDS: FUROSEMIDE INJ 40 MG/4 ML VIAL IV PUSH ×2 (08:53→17:52)
[2022-04-14] MEDS: TELMISARTAN 40 MG TABLET PO (08:53)
--- NOTE | 2022-04-14 09:56 | PM.PNCARD ---
Progress Note: A&P Assessment and Plan (1) CHF (congestive heart failure): Code(s): I50.9 - Heart failure, unspecified Status: Acute Assessment and Plan: 86-year-old female with hypertension, persistent atrial fibrillation on chronic anticoagulation with warfarin, CKD, hypothyroidism on thyroxine replacement. Patient admitted to the hospital with worsening shortness of breath. Clinical presentation consistent with CHF. EKG shows atrial fibrillation with controlled ventricular response. Troponin x2 [place] [address]. INR 3.2 at presentation. Chest x-ray shows Pulmonary edema. Bibasilar atelectasis/consolidation. TSH elevated at 7.45. Influenza and COVID-19 negative. Continue IV diuresis. Awaiting echocardiogram results. Continue rate control strategy. Anticoagulation with warfarin. Replace potassium as needed. BMP in the morning -IV diuresis with furosemide. Monitor electrolytes and renal function. Switch to p.o. furosemide when volume status improves. She will need maintenance diuresis as an outpatient. - Patient is currently rate controlled with diltiazem, and anticoagulated with warfarin. Echocardiogram read is completed but results did not go into [employer]. If patient has LV systolic dysfunction, then switch diltiazem to beta-юлия. Patient has been on chronic anticoagulation with warfarin. She states that she was offered 1 of the DOACs in the past but chose to stay on warfarin. Potassium is a little low. Will replace with 40 mEq p.o. x1. - patient has hypothyroidism and is on thyroxine replacement. Current TSH is elevated. Optimize thyroxine supplementation as necessary. Management as per primary team. (2) Atrial fibrillation with controlled ventricular response: Code(s): I48.91 - Unspecified atrial fibrillation Status: Acute Assessment and Plan: see management above. Subjective Date/time seen: 04/14/22 09:56 Interval history: 86-year-old with history of CHF, atrial fibrillation anticoagulation. Admitted was worsening shortness of breath and heart failure Date of service 04/13/2022: She is doing bit better today. She is less short of breath. Swelling seems to be improved. She has no chest pain. Date of service 04/14/2022: Swelling still present. No chest pain. No shortness breath Review of Systems Review of Systems: All systems reviewed & are unremarkable except as noted in HPI and below Constitutional: Constitutional: Denies body ache(s) and Denies excessive sweating Eyes: Eyes: Denies no additional eye complaints ENT: Denies Normal hearing present Cardiovascular: Cardiovascular: Reports pedal edema, Reports leg edema and Reports dyspnea Respiratory: Respiratory: Reports dyspnea Gastrointestinal: Gastrointestinal: Denies abdominal pain Genitourinary: Genitourinary: Denies hematuria Musculoskeletal: Musculoskeletal: Denies back pain Neurologic: Denies Normal hearing present and Denies Abnormal speech present Psychiatric: Psychiatric: Denies anxiety Endocrine: Endocrine: Denies excessive sweating Hematologic/Lymphatic: Hematologic/Lymphatic: Denies easy bleeding Allergic/Immunologic: Allergic/Immunologic: Denies GI upset with certain foods Exam Narrative: PHYSICAL EXAMINATION: GENERAL: obese, pleasant female, Alert, oriented, no acute distress MENTAL STATUS: affect appropriate to mood EYES: Extraocular movements intact, no pallor EARS: External ears appear normal, hearing grossly normal NOSE: Normal and patent, no discharge MOUTH: Mucous membranes moist, tongue normal NECK: Supple, no JVD CHEST: coarse breath sounds bilaterally HEART: Normal rate, irregularly irregular rhythm ABDOMEN: Soft, nontender NEUROLOGICAL: Alert, oriented, normal speech, no gross motor deficits MUSCULOSKELETAL: No major deformity, no amputation EXTREMITIES: bilateral pedal edema with erythema SKIN: erythema lower
--- NOTE | 2022-04-14 13:58 | PM.IMPN ---
Progress Note: A&P Assessment and Plan (1) New onset of congestive heart failure: Code(s): I50.9 - Heart failure, unspecified Status: Acute Assessment and Plan: Patient presents with shortness of breath and found to have acute diastolic CHF. Co-management with cardiology Echo showing normal LV size and function with severe biatrial dilation with indeterminate diastolic fxn On IV furosemide with negative fluid balance Weaned to room air Monitor electrolytes and renal function.? Switch to p.o. furosemide when OK by Cardiology. They recommend continuing IV today. She will need maintenance diuresis as an outpatient. Start empagliflozin? (2) Atrial fibrillation: Code(s): I48.91 - Unspecified atrial fibrillation Status: Chronic Assessment and Plan: Patient with chronic AFib Has been offered DOAC in the past but wants to continue Coumadin INR noted. Continue daily INR checks and hold if >3.4 (3) Hypothyroidism: Code(s): E03.9 - Hypothyroidism, unspecified Status: Chronic Assessment and Plan: TSH is 7.450 and Free T4 low at 0.75 Allergic to levothyroxine Will advance thyroid tablet (4) Kidney disease: Code(s): N28.9 - Disorder of kidney and ureter, unspecified Status: Acute Assessment and Plan: Patient at baseline Avoid nephrotoxic agents Will renal dose medication Subjective Date/time seen: 04/14/22 13:58 Interval history: 86yo female with history of CHF and atrial fibrillation admitted for worsening shortness of breath. Assuming care. Chart reviewed. No problems overnight. No chest pain shortness of breath she denies any dyspnea on exertion. She is up walking to the bathroom. She does state that she takes Lasix at home but is not sure of the dose. It is not listed on her med list. Exam Narrative: AF 97.1 114/56 75 18 90% ra Gen - NARD Chest - CTA bilaterally, nml RR CV -irregularly irregular. Telemetry showing atrial fibrillation with controlled rate. Abd -soft. Obese. Nontender. Ext -trace pedal edema Psych - Nml mood and affect Skin -chronic venous stasis skin changes. Objective Data Vital Signs Vital Signs: Vital Signs - 24 hr 04/13/22 14:00 04/13/22 17:54 04/13/22 20:00 Temperature 97.2 F L Pulse Rate 65 64 Respiratory Rate 21 H Blood Pressure 106/57 L Pulse Oximetry 96 94 Oxygen Delivery Room Air 04/13/22 20:00 04/14/22 00:00 04/13/22 22:00 Temperature 96.8 F L Pulse Rate 64 74 Respiratory Rate 17 Blood Pressure 113/53 L Pulse Oximetry 91 Oxygen Delivery Room Air 04/14/22 04:00 04/14/22 06:00 04/14/22 08:00 Temperature 97.1 F L Pulse Rate 67 75 Respiratory Rate 18 Blood Pressure 114/56 L Pulse Oximetry 90 Oxygen Delivery Room Air Intake/Output Intake/Output: Intake & Output 04/11/22 04/12/22 04/13/22 04/14/22 23:59 23:59 23:59 23:59 Intake Total 1150 720 720 Output Total 75 1900 1600 1300 Balance -75 -750 -880 -580 Meds/Results Medications: Active Medications Generic Name Dose Route Start Last Admin Trade Name Freq PRN Reason Stop Dose Admin Diltiazem HCl 240 mg 04/12/22 09:00 04/14/22 08:52 Diltiazem Hcl Cd 240 Mg Cap.Er.24h PO 240 mg Q12HR ANNE Administration Furosemide 40 mg 04/12/22 09:00 04/14/22 08:53 Furosemide Inj 40 Mg/4 Ml Vial IV PUSH 40 mg BID ANNE Administration Telmisartan 40 mg 04/12/22 09:00 04/14/22 08:53 Telmisartan 40 Mg Tablet PO 40 mg DAILY ANNE Administration Thyroid 60 mg 04/12/22 09:00 04/14/22 08:52 Thyroid 30 Mg Tablet PO 60 mg QAM ANNE Administration Warfarin Sodium 4 mg 04/13/22 17:00 04/13/22 17:48 Warfarin (*Pbkc) 4 Mg Tablet PO 4 mg [id number] [facility] Administration Warfarin Sodium 2 mg 04/12/22 17:00 04/12/22 16:30 Warfarin (*Pbkc) 2 Mg Tablet PO 2 mg SuTh@1700 [facility] Administration Radiology Results
[2022-04-14] MEDS: WARFARIN (*PBKC) 4 MG TABLET PO (17:52)
[2022-04-15] VITALS: PULSE 71
[2022-04-15 04:00] VITALS: PULSE 56
[2022-04-15 06:00] VITALS: BP 130/78; PULSE 76; RESP 19; TEMP 36.2; O2SAT 92
[2022-04-15 06:30] LABS: Anion Gap 4 mmol/L (8-16); Blood Urea Nitrogen 35 mg/dL (7-17); Carbon Dioxide 32 mmol/L (22-30); Chloride 102 mmol/L (98-107); Estimated Glomerular Filt Rate 42; Glucose 95 mg/dL (65-110); Potassium 3.4 mmol/L (3.4-5.0); Sodium 138 mmol/L (137-145)
[2022-04-15 06:33] LABS: INR 3.2; Prothrombin Time 31.8 Seconds (11.1-14.7)
[2022-04-15 08:00] VITALS: PULSE 72
--- NOTE | 2022-04-15 09:08 | PM.PNCARD ---
Progress Note: A&P Assessment and Plan (1) CHF (congestive heart failure): Code(s): I50.9 - Heart failure, unspecified Status: Acute Assessment and Plan: 86-year-old female with hypertension, persistent atrial fibrillation on chronic anticoagulation with warfarin, CKD, hypothyroidism on thyroxine replacement. Patient admitted to the hospital with worsening shortness of breath. Clinical presentation consistent with CHF. EKG shows atrial fibrillation with controlled ventricular response. Troponin x2 [place] [address]. INR 3.2 at presentation. Chest x-ray shows Pulmonary edema. Bibasilar atelectasis/consolidation. TSH elevated at 7.45. Influenza and COVID-19 negative. Continue IV diuresis. Continue rate control strategy. Anticoagulation with warfarin. PA and lateral chest x-ray today for follow-up of her heart failure -IV diuresis with furosemide. Monitor electrolytes and renal function. Switch to p.o. furosemide when volume status improves. She will need maintenance diuresis as an outpatient. - Patient is currently rate controlled with diltiazem, and anticoagulated with warfarin. Echocardiogram Shows preserved ejection fraction. Patient has been on chronic anticoagulation with warfarin. She states that she was offered 1 of the DOACs in the past but chose to stay on warfarin. will give additional dose of potassium 40 mg p.o. x1. - patient has hypothyroidism and is on thyroxine replacement. Current TSH is elevated. Optimize thyroxine supplementation as necessary. Management as per primary team. (2) Atrial fibrillation with controlled ventricular response: Code(s): I48.91 - Unspecified atrial fibrillation Status: Acute Assessment and Plan: see management above. Subjective Date/time seen: 04/15/22 09:08 Interval history: 86-year-old with history of CHF, atrial fibrillation anticoagulation. Admitted was worsening shortness of breath and heart failure Date of service 04/13/2022: She is doing bit better today. She is less short of breath. Swelling seems to be improved. She has no chest pain. Date of service 04/14/2022: Swelling still present. No chest pain. No shortness breath Date of service 04/15/2022: Has some lower extremity swelling no chest pain or shortness of breath. Review of Systems Review of Systems: All systems reviewed & are unremarkable except as noted in HPI and below Constitutional: Constitutional: Denies body ache(s) and Denies excessive sweating Eyes: Eyes: Denies no additional eye complaints ENT: Denies Normal hearing present Cardiovascular: Cardiovascular: Reports pedal edema, Reports leg edema and Reports dyspnea Respiratory: Respiratory: Reports dyspnea Gastrointestinal: Gastrointestinal: Denies abdominal pain Genitourinary: Genitourinary: Denies hematuria Musculoskeletal: Musculoskeletal: Denies back pain Neurologic: Denies Normal hearing present and Denies Abnormal speech present Psychiatric: Psychiatric: Denies anxiety Endocrine: Endocrine: Denies excessive sweating Hematologic/Lymphatic: Hematologic/Lymphatic: Denies easy bleeding Allergic/Immunologic: Allergic/Immunologic: Denies GI upset with certain foods Exam Narrative: PHYSICAL EXAMINATION: GENERAL: obese, pleasant female, Alert, oriented, no acute distress MENTAL STATUS: affect appropriate to mood EYES: Extraocular movements intact, no pallor EARS: External ears appear normal, hearing grossly normal NOSE: Normal and patent, no discharge MOUTH: Mucous membranes moist, tongue normal NECK: Supple, no JVD CHEST: coarse breath sounds bilaterally HEART: Normal rate, irregularly irregular rhythm ABDOMEN: Soft, nontender NEUROLOGICAL: Alert, oriented, normal speech, no gross motor deficits MUSCULOSKELETAL: No major deformity, no amputation EXTREMITIES: bilateral pedal edema with erythema SKIN: erythema lower extremities PS
[2022-04-15] MEDS: TELMISARTAN 40 MG TABLET PO (09:29)
[2022-04-15] MEDS: FUROSEMIDE INJ 40 MG/4 ML VIAL IV PUSH (09:32)
[2022-04-15] MEDS: THYROID 30 MG TABLET 75 MG PO (09:33)
--- NOTE | 2022-04-15 09:44 | P.DS_ITS ---
DS: Admitting Diagnosis Discharge Date 04/15/22 DS: Summary Time Spent with Patient Time attestation: Total time spent providing and/or coordinating discharge services: DS: Data Data Completed and Pending Labs on day of discharge: Labs from last 24 hours 04/15/22 04/15/22 05:56 05:56 PT 31.8 H INR 3.2 Sodium 138 Potassium 3.4 Chloride 102 Carbon Dioxide 32 H Anion Gap 4 L BUN 35 H Creatinine 1.20 H Estim Creat Clear Calc Not Reportable Estimated GFR 42 L Glucose 95 Calcium 8.0 L Discharge Plan Discharge Consulting providers: Rafael Blanc Patient Instructions: Warfarin (By mouth) Discharge Medications: No Action telmisartan 40 mg tablet 40 mg PO DAILY warfarin 4 mg tablet 4 mg PO DAILY Label Comments: 4mg taken at 5pm daily and 6mg at 5pm on Wednesdays. Rx Instructions: 1/2 tablet on and wednesday calcium carbonate-vitamin D3 [Calcium 600 + D(3)] 600 mg(1,500mg) -200 unit tablet 1 tablet PO BID diltiazem HCl 240 mg capsule,extended release 24hr 240 mg PO BID Qty: 180 0RF thyroid (pork) [[place] Thyroid] 60 mg tablet See Rx Instructions .ROUTE .COMPLEX Qty: 90 2RF Dose Instruction: TAKE 1 TABLET DAILY Rx Instructions: TAKE 1 TABLET DAILY. Date of admission: 04/11/22 22:25 Primary Care Provider: Kendrick Ambriz Admitting Provider: Gaviota Ibarra Attending physician on admission: Julienne Vogt Condition: Stable
--- NOTE | 2022-04-15 09:45 | PM.IMPN ---
Progress Note: A&P Assessment and Plan (1) New onset of congestive heart failure: Code(s): I50.9 - Heart failure, unspecified Status: Acute Assessment and Plan: Patient presents with shortness of breath and found to have acute diastolic CHF. Co-management with cardiology Echo showing normal LV size and function with severe biatrial dilation with indeterminate diastolic fxn On IV furosemide with negative fluid balance Weaned to room air Monitor electrolytes and renal function.? Switch to p.o. furosemide when OK by Cardiology. They recommend continuing IV today. She will need maintenance diuresis as an outpatient. (2) Atrial fibrillation: Code(s): I48.91 - Unspecified atrial fibrillation Status: Chronic Assessment and Plan: Patient with chronic AFib Has been offered DOAC in the past but wants to continue Coumadin INR noted. Continue daily INR checks and hold if >3.4 (3) Hypothyroidism: Code(s): E03.9 - Hypothyroidism, unspecified Status: Chronic Assessment and Plan: TSH is 7.450 and Free T4 low at 0.75 Allergic to levothyroxine Will advance thyroid tablet (4) Kidney disease: Code(s): N28.9 - Disorder of kidney and ureter, unspecified Status: Acute Assessment and Plan: Patient at baseline Avoid nephrotoxic agents Will renal dose medication Plan DVT prophylaxis with Coumadin, INR 3.2 today, 04/15/2022 GI prophylaxis not indicated Code status DNR Subjective Date/time seen: 04/15/22 09:45 Interval history: No overnight events noted. No chest pain or shortness of breath. No nausea, vomiting or diarrhea. No fevers or chills. Review of Systems Review of Systems: 12 point review of systems was assessed and was negative except as noted in the HPI Exam Narrative: General: No acute distress, alert and oriented per baseline HEENT: Atraumatic, normocephalic, mucous membranes moist CV: Regular rate and rhythm, S1, S2 Lungs: Clear to auscultation bilaterally, no rales or crackles noted, no wheezes, good air entry Abdomen: Soft, nontender, nondistended Extremities: Minimal lower extremity edema noted Skin: No rashes noted, no lesions or wounds seen Psych: Euthymic, normal affect Objective Data Vital Signs Vital Signs: Vital Signs - 24 hr 04/14/22 14:00 04/14/22 12:00 04/14/22 16:00 Temperature 97.5 F L Pulse Rate 73 62 69 Respiratory Rate 16 Blood Pressure 116/58 L Pulse Oximetry 92 Oxygen Delivery 04/14/22 19:50 04/14/22 22:00 04/14/22 20:00 Temperature 97.3 F L Pulse Rate 69 75 72 Respiratory Rate 16 19 Blood Pressure 127/75 Pulse Oximetry 92 91 Oxygen Delivery Room Air 04/15/22 00:00 04/15/22 04:00 04/15/22 06:00 Temperature 97.1 F L Pulse Rate 71 56 L 76 Respiratory Rate 19 Blood Pressure 130/78 Pulse Oximetry 92 Oxygen Delivery Intake/Output Intake/Output: Intake & Output 04/12/22 04/13/22 04/14/22 04/15/22 23:59 23:59 23:59 23:59 Intake Total 3243 637 2239 360 Output Total 1900 1600 1300 Balance -750 -880 160 360 Meds/Results Medications: Active Medications Generic Name Dose Route Start Last Admin Trade Name Freq PRN Reason Stop Dose Admin Diltiazem HCl 240 mg 04/12/22 09:00 04/15/22 09:32 Diltiazem Hcl Cd 240 Mg Cap.Er.24h PO 240 mg Q12HR ANNE Administration Furosemide 40 mg 04/12/22 09:00 04/15/22 09:32 Furosemide Inj 40 Mg/4 Ml Vial IV PUSH 40 mg BID ANNE Administration Telmisartan 40 mg 04/12/22 09:00 04/15/22 09:29 Telmisartan 40 Mg Tablet PO 40 mg DAILY ANNE Administration Thyroid 75 mg 04/16/22 06:30 Thyroid 30 [place] 0630 [facility] Warfarin Sodium 4 mg 04/13/22 17:00 04/14/22 17:52 Warfarin (*Pbkc) 4 Mg Tablet PO 4 mg [id number] ANNE Administration Warfarin Sodium 2 mg 04/12/22 17:00 04/12/22 16:30 Warfarin (*Pbkc) 2 Mg Tablet PO 2 mg
[2022-04-15] MEDS: POTASSIUM CHLORIDE 20 MEQ TABLET 40 MEQ PO (10:04)
[2022-04-15 12:00] VITALS: PULSE 67
[2022-04-15 14:00] VITALS: BP 90/69; PULSE 63; RESP 18; TEMP 36.2; O2SAT 94
--- NOTE | 2022-04-15 14:18 | PM.DS ---
DS: Admitting Diagnosis Discharge Date 04/15/22 Admitting Diagnosis sob DS: Discharge Diagnosis Discharge Diagnosis (1) New onset of congestive heart failure: Code(s): I50.9 - Heart failure, unspecified Status: Acute Assessment and Plan: Patient presents with shortness of breath and found to have acute diastolic CHF. Co-management with cardiology Echo showing normal LV size and function with severe biatrial dilation with indeterminate diastolic fxn On IV furosemide with negative fluid balance Weaned to room air Monitor electrolytes and renal function.? Switch to p.o. furosemide when OK by Cardiology. They recommend continuing IV today. She will need maintenance diuresis as an outpatient. (2) Atrial fibrillation: Code(s): I48.91 - Unspecified atrial fibrillation Status: Chronic Assessment and Plan: Patient with chronic AFib Has been offered DOAC in the past but wants to continue Coumadin INR noted. Continue daily INR checks and hold if >3.4 (3) Hypothyroidism: Code(s): E03.9 - Hypothyroidism, unspecified Status: Chronic Assessment and Plan: TSH is 7.450 and Free T4 low at 0.75 Allergic to levothyroxine Will advance thyroid tablet (4) Kidney disease: Code(s): N28.9 - Disorder of kidney and ureter, unspecified Status: Acute Assessment and Plan: Patient at baseline Avoid nephrotoxic agents Will renal dose medication Plan DVT prophylaxis with Coumadin, INR 3.2 today, 04/15/2022 GI prophylaxis not indicated Code status DNR DS: Summary Hospital Course Hospital Course: 86-year-old female with a past medical history of hypothyroidism, chronic kidney disease stage 3 and chronic atrial fibrillation on chronic anticoagulation Coumadin who presented to the ER with shortness of breath.? The patient reports that she has actually been having progressive shortness of breath for at least 3 weeks but it acutely worsened about 3 days ago.? She reports that she has chronic lower extremity swelling and does not pay much attention to her lower extremity so she does not know for edema is worse.? She thinks that her shoes may be a little bit tighter than usual.? She definitely thinks that her pants are tighter than usual.? She states that she has a scale at home but it is been broken for over a year so she does not weighed herself.? She states that her shortness of breath is worse with activity and that she cannot sleep well over the last couple of weeks due to orthopnea.? The only time she is getting any sleep is if she sits in her recliner.? She does not know if she snores.? She states that her shortness of breath has become so bad that she cannot or for more than a couple of minutes without extreme were could breathing.? She denies palpitations, cough or congestion.? She has been compliant with her cardiac medications.? Although in the past she has been noncompliant with close monitoring of her INR.? Her last echocardiogram was in 2006.? She follows with Dr. Chloé Toth.? She does not have a prior history of heart failure. Echo performed and showed normal EF, severe biatrial enlargement, indeterminate diastolic function and reduced right ventricle function, mild valvular disease, no comment on pulm HTN. IV diuresis resolved most symptoms, repeat CXR performed and showed improved edema, and review of imaging showed significant improvement in pleural effusions. Symptoms resolved and she was eager to go home and follow up outpatient with Dr Toth. She was instructed on the use of an incentive spirometer as well and the importance of ambulating. She was d/c in stable condition with close outpatient follow up on lasix 40 mg po daily with a repeat BMP in 1 week to assess creatinine and potassium. Time Spent with Patient Time attestation: Total time spent providing and/or coordinating discharge services: Exam Narrative: General: No acute distr
== END 2022-04-15 16:30 | disposition home or self-care (01) | DRG 291 ==
LOC: ANHED 21:52 → ANH3MEDSUR 23:24
PROVIDERS: Internal Medicine; Nurse Practitioner Adult Health; Admitting Provider Internal Medicine; Emergency Provider Emergency Medicine; PCP Family Medicine; Visit Provider Student in an Organized Health Care Education/Training Program
DX: I13.0 Hypertensive heart and chronic kidney disease with heart failure and stage 1 through stage 4 chronic kidney disease, or unspecified chronic kidney disease (principal); I50.31 Acute diastolic (congestive) heart failure; I48.20 Chronic atrial fibrillation, unspecified; I87.2 Venous insufficiency (chronic) (peripheral); N18.30 Chronic kidney disease, stage 3 unspecified; E03.9 Hypothyroidism, unspecified; E78.2 Mixed hyperlipidemia; E66.9 Obesity, unspecified; Z79.01 Long term (current) use of anticoagulants
CPT/HCPCS: 36415; 71045; 71046; 80048; 80053; 83735; 83880; 84439; 84484; 85025; 85027; 85610; 85730; 87637; 93005; 96374; 99291; A9270; C8929; J1650; J1940; Q9957

== ENCOUNTER 2022-04-18 12:00 | Outpatient (CLI) | payer MEDICARE, SELFPAY ==
[2022-04-18 18:18] LABS: Anion Gap 7 mmol/L (8-16); Blood Urea Nitrogen 36 mg/dL (7-17); Calcium 8.9 mg/dL (8.4-10.2); Carbon Dioxide 29 mmol/L (22-30); Chloride 103 mmol/L (98-107); Estimated Glomerular Filt Rate 42; Glucose 140 mg/dL (65-110); Sodium 139 mmol/L (137-145)
== END 2022-04-18 12:01 | disposition home or self-care (01) ==
PROVIDERS: PCP Family Medicine; Visit Provider Student in an Organized Health Care Education/Training Program
DX: I50.9 Heart failure, unspecified (principal)
CPT/HCPCS: 36415; 80048; 85610

== ENCOUNTER 2022-07-02 11:21 | Outpatient (RCR) | payer MEDICARE, SELFPAY ==
[2022-04-18 13:04] LABS: INR 3.1
[2022-07-02 12:20] LABS: INR 2.2; Prothrombin Time 23.4 Seconds (11.1-14.7)
== END 2022-07-17 23:59 | disposition home or self-care (01) ==
LOC: ANHLAB 11:21
PROVIDERS: PCP Family Medicine; Visit Provider Internal Medicine Cardiovascular Disease
DX: I48.19 Other persistent atrial fibrillation (principal)
CPT/HCPCS: 36415; 85610

== ENCOUNTER 2022-08-05 11:46 | Outpatient (RCR) | payer MEDICARE, SELFPAY ==
[2022-08-05 12:17] LABS: INR 2.2; Prothrombin Time 26.5 Seconds (11.1-14.7)
== END 2022-11-03 23:59 | disposition home or self-care (01) ==
LOC: ANHLAB 11:46
PROVIDERS: PCP Family Medicine; Visit Provider Internal Medicine Cardiovascular Disease
DX: Z79.01 Long term (current) use of anticoagulants (principal)
CPT/HCPCS: 36415; 85610

== ENCOUNTER 2022-11-05 11:13 | Outpatient (RCR) | payer MEDICARE, SELFPAY ==
[2022-11-05 12:34] LABS: INR 2.5; Prothrombin Time 28.9 Seconds (11.1-14.7)
== END 2023-02-03 23:59 | disposition home or self-care (01) ==
LOC: ANHLAB 11:13
PROVIDERS: PCP Family Medicine; Visit Provider Internal Medicine Cardiovascular Disease
DX: Z51.81 Encounter for therapeutic drug level monitoring (principal); Z79.01 Long term (current) use of anticoagulants
CPT/HCPCS: 36415; 85610

== ENCOUNTER 2022-12-29 14:01 | Observation (INO) | payer MEDICARE, SELFPAY ==
[2022-12-29] VITALS (8 sets, daily range): BP systolic 121–147; BP diastolic 49–63; PULSE 68–90; RESP 18–20; TEMP 36.2–36.8; O2SAT 93–98; BMI 34.6
--- NOTE | ~2022-12-29 | XR_ITS ---
EXAMINATION: XR chest 2V Exam Date/Time: 12/29/2022 15:00 CDT HISTORY: Short of breath Comparison: 04/15/2022. RESULT: Lines, tubes, and devices: None. Lungs and pleura: Diffuse interstitial pattern. Subsegmental bibasilar pulmonary opacities. Mild radha ateral costophrenic angle blunting. Cardiomediastinal silhouette: Stable. Other: No acute osseous or upper abdominal finding. Exaggerated thoracic kyphosis IMPRESSION: Mild interstitial edema with small bilateral effusions and bibasilar atelectasis. Infection not exclu ded. Reviewed, dictated and finalized at location K. IMPRESSION: Mild interstitial edema with small bilateral effusions and bibasilar atelectasi s. Infection not excluded.
--- NOTE | 2022-12-29 14:04 | ECG_ITS ---
Measurements Intervals [place] Rate: 78 P: [place]: 0 QRS: -17 QRSD: 73 T: 0 QT: 217 QTc: 248 Interpretive Statements ATRIAL FIBRILLATION MISSING LEAD V2 LOW QRS VOLTAGE IN DIFFUSE LEADS BORDERLINE T WAVE ABNORMALITY- ANT/INF LEADS BASELINE ARTIFACT- I, III, AVR, AVL, AVF, V1, V3-V6 ABNORMAL ECG COMPARED TO ECG 04/11/2022 20:14:09 NO SIGNIFICANT CHANGES Electronically Signed On 12-29-2022 14:29:12 CDT by Justyn Rose D.O.
--- NOTE | 2022-12-29 17:08 | ED.GENADULT ---
HPI - General Adult General Chief complaint: Shortness of Breath/Dyspnea <Nata Vilchis APRN - Last Filed: 12/29/22 17:13> Stated complaint: SOB <Nata Vilchis APRN - Last Filed: 12/29/22 17:13> Time Seen by Provider: 12/29/22 19:00 <Nata Vilchis APRN - Last Filed: 12/29/22 17:13> Source: patient, RN notes reviewed and old records reviewed <Julia Fitzpatrick MD - Last Filed: 12/29/22 22:53> Mode of arrival: ambulatory <Julia Fitzpatrick MD - Last Filed: 12/29/22 22:53> Limitations: no limitations <Julia Fitzpatrick MD - Last Filed: 12/29/22 22:53> History of Present Illness HPI narrative: Delaney Aguirre is an 87 y/o female with PMHx of HTN/ HLD/ Afib/ CHF who presents with complaints of increased SOB that started 4 days ago. Denies chest pain. Reports she has had a cough for about a month and that is unchanged. Currently on Coumadin. <Nata Vilchis APRN - Last Filed: 12/29/22 17:13> Delaney Aguirre is an 87 y/o female with PMHx of HTN/ HLD/ Afib/ CHF who presents with complaints of increased SOB that started 4 days ago. She reports dyspnea on exertion. She had to stop to catch her breath when she was walking to the male box. She reports chronic lower extremity edema. Denies chest pain. Reports she has had a cough for about a month and that is unchanged. Currently on Coumadin. She denies fever, chills, wheezing. She takes lasix 40 mg daily since her last hospitalization for CHF. She did not take her lasix today in fear of having to urinate while out. Her oxygen saturation was 88% on room air when she walked to her room. She has been placed 3 L NC <Julia Fitzpatrick MD - Last Filed: 12/29/22 22:53> Related Data Home medications: Home Medications Medication Instructions Recorded Confirmed calcium carbonate 600 mg-vitamin 1 tablet PO BID 04/18/19 12/29/22 D3 5 mcg (200 unit) tablet (Calcium 600 + D(3)) telmisartan 40 mg tablet 40 mg PO QPM 04/12/22 12/29/22 warfarin 2 mg tablet 2 mg PO 3XW 08/07/22 12/29/22 warfarin 4 mg tablet 4 mg PO 4XW 08/07/22 12/29/22 cartilage 40 mg-collagen II-boron 1 tablet PO DAILY 12/29/22 12/29/22 5 mg-hyaluronate sod 3.3 mg tablet (Move Free Ultra Triple Action (boron)) diltiazem HCl 240 mg 240 mg PO Q12H 12/29/22 12/29/22 capsule,extended release 24 hr multivitamin with calcium and 1 tablet PO DAILY 12/29/22 12/29/22 minerals-folic acid 200 mcg tablet (One-A-Day Proactive 65 Plus) thyroid (pork) 60 mg tablet 60 mg PO DAILY 12/29/22 12/29/22 ([place] Thyroid) vit C 250 mg-vit E 90 mg-zinc 40 1 tablet PO BID 12/29/22 12/29/22 mg-copper 1 ti-hkdaef-zfryat capsule (PreserVision AREDS-2) <Nata Sun August, GEOGRAPHIC INFORMATION SYSTEM SURVEYOR - Last Filed: 12/29/22 17:13> Allergies/adverse reactions: Allergies Allergy/AdvReac Type Severity Reaction Status Date / Time Penicillins Allergy Mild Rash Verified 08/07/22 09:38 erythromycin base Allergy Unknown Itching Verified 08/07/22 09:38 levothyroxine sodium Allergy Unknown Itching Verified 08/07/22 09:38 metoprolol Allergy Unknown Itching Verified 08/07/22 09:38 penicillin G Allergy Unknown Itching Verified 08/07/22 09:38 Sulfa (Sulfonamide Allergy Unknown Itching Verified 08/07/22 09:38 Antibiotics) <Nata Vilchis, GEOGRAPHIC INFORMATION SYSTEM SURVEYOR - Last Filed: 12/29/22 17:13> Review of Systems Review of Systems: CONSTITUTIONAL: Denies fever, chills, or sweats. EYES: Denies visual changes, redness, or discharge. ENT: Denies rhinorrhea, congestion, sore throat, or otalgia. CARDIOVASCULAR: Denies chest pain, palpitations RESPIRATORY: reports cough for about a month, reports increased dyspnea for the past 4 days GASTROINTESTINAL: Denies abdominal pain, nausea, vomiting, or diarrhea. GENITOURINARY: Denies dysuria or hematuria. SKIN: Denies rash or itching. MUSCULOSKELETAL: Denies back pain, joint pain, or myalgia. NEUROLOGIC: Denies headache, numbness, dizziness, or weakness. PSYCHIATRIC: Denies anxiety or depressio
[2022-12-29 17:19] LABS: Basophils Absolute Auto 0.1 K/mm3 (0.0-0.1); Basophils Percent Auto 0.7 % (0.2-1.2); Eosinophils Absolute Auto 0.2 K/mm3 (0-0.3); Eosinophils Percent Auto 1.9 % (0-4.4); Hematocrit 43.5 % (37.0-47.0); Hemoglobin 13.2 g/dL (12.0-15.0); Immature Granulocyte Absolute 0.03 K/mm3 (0.00-0.031); Immature Granulocyte Percent A 0.3 % (0-0.5); Lymphocytes Absolute Auto 1.96 K/mm3 (0.9-3.2); Lymphocytes Percent Auto 22.1 % (18.3-44.2); Mean Corpuscular HGB Conc 30.3 g/dl (32-36); Mean Corpuscular Hemoglobin 28.9 pg (26-34); Mean Corpuscular Volume 95.4 fl (80-100); Mean Platelet Volume 11.3 fl (7.4-10.4); Monocytes Absolute Auto 0.8 K/mm3 (0.1-0.6); Monocytes Percent Auto 9.4 % (2.6-8.5); Neutrophils Absolute Auto 5.8 K/mm3 (1.3-6.7); Neutrophils Percent Auto 65.6 % (45.5-73.1); Platelet Count Result 274 k/mm3 (150-375); Red Blood Count 4.56 M/mm3 (4.2-5.4); Red Cell Distribution Width 14.6 % (11.5-14.5); White Blood Count 8.9 K/mm3 (4.5-10.0)
[2022-12-29 17:46] LABS: INR 2.5; Prothrombin Time 29.1 Seconds (11.1-14.7)
[2022-12-29 19:26] LABS: Alanine Aminotransferase 17 U/L (6-35); Albumin Level 3.9 g/dL (3.5-5.1); Alkaline Phosphatase 72 U/L (38-126); Anion Gap 11 mmol/L (8-16); Aspartate Amino Transferase 31 U/L (14-36); Bilirubin,Total 0.6 mg/dL (0.2-1.3); Blood Urea Nitrogen 34 mg/dL (7-17); Calcium 9.2 mg/dL (8.4-10.2); Carbon Dioxide 24 mmol/L (22-30); Chloride 106 mmol/L (98-107); Estimated CRCL calculation 28 ml/min; Estimated Glomerular Filt Rate 42; Glucose 103 mg/dL (65-110); NT Pro B Type Natriuretic Pept 1590 pg/mL (19.9-100); Potassium 4.5 mmol/L (3.4-5.0); Sodium 141 mmol/L (137-145); Troponin I 0.013 ng/mL (0.000-0.034)
[2022-12-29] MEDS: FUROSEMIDE INJ 40 MG/4 ML VIAL IV PUSH (20:20)
--- NOTE | 2022-12-29 20:31 | PM.IMHP ---
H&P: HPI History of Present Illness Date/Time: 12/29/22 20:31 Chief Complaint: Shortness of breath for several days Narrative: 87-year-old female with past medical history of CHF with preserved ejection fraction, chronic atrial fibrillation rate controlled, essential hypertension, hypothyroidism and chronic anticoagulation who presented to the ER from home with increasing dyspnea for 4 days. The patient reports that she has had as a nonproductive cough for about a month where she is S repetitively clearing her throat. She reports some associated like postnasal drip. She denies any fevers or chills. She does report that she feels her heart racing when she checks her pulse but does not feel sensation of palpitations in her chest. She does have a history of atrial fibrillation and her rate was controlled when she arrived to the ER. She denies any fevers, chills or recent ill contacts. She does have chronic lower extremity edema but her edema has improved significantly compared to when she was hospitalized back in April of 2022. Since that hospitalization she has lost between 40-50 lb. She reports that her legs appear significantly better and she does not feel like her current symptoms are due to heart failure. She has been taking her Lasix as directed but did not take it today because she did not want to risk calf and a run to the bathroom while she was out of the house. When she was ambulated back to the triage room patient's pulse ox did drop to 88% and she was placed on 3 L nasal cannula. She is not on oxygen at home. She does think that she probably snores but she lives alone and is uncertain. She has never been tested for sleep apnea. She reports that she does not feel her symptoms are due to heart failure because her weight has been within 2 lb of her baseline weight. Chest x-ray in the ER did demonstrate mild interstitial edema with small bilateral pleural effusions and atelectasis. Her urine demonstrated positive nitrates and 4+ esterase. She does have chronic urinary frequency associated with her Lasix use. She denied dysuria. COVID PCR in the ER was negative. Review of Systems Review of Systems: 12 systems were reviewed with pertinent positives and negatives per HPI. Except as documented in the HPI, all other systems were reviewed and are negative. [facility] Past Medical History Medical History Chronic a-fib Chronic kidney disease, stage III (moderate) Heart failure with preserved ejection fraction Echocardiogram April 2022: Normal left ventricular thickness and systolic function. 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 She was to her 1st for 23 years before he and got remarried in for 26 years prior to being in 2005. She never had any children. She still drives. Code status: DNR/DNI (however the patient would be amendable to synchronized cardioversion in the setting of acute cardiac arrhythmia. She would not want cardiopulmonary resuscitation in the set of cardiopulmonary arrest.) Healthcare power of commonwealth attorney: Padmaja Ocampo (the patient's sister who is 60 years
[2022-12-29 20:45] LABS: Appearance Urine Cloudy (Clear); Bacteria Urine 4+ /hpf; Bilirubin Urine Negative (Negative); Blood Urine Negative (Negative); Color Urine Yellow (Yellow); Glucose Urine UA Negative (Negative); Ketones Urine Trace mg/dL (Negative); Leukocyte Esterase Ur 1+ LEU/UL (Negative); Nitrate Urine Positive (Negative); Protein Urine Negative (Negative); RBC Urine 0-2 /hpf (0-2); Specific Grav Ur 1.016 (1.001-1.035); Squamous Epithelial Cell Urine Occasional /hpf (Few); Urobilinogen Urine 0.2 mg/dL (<2.0); pH Urine 5.5 (5.0-9.0)
[2022-12-29 20:58] LABS: Add Urine Microscopic? YES
[2022-12-29 22:16] LABS: SARS-CoV-2 RNA PCR Negative (Negative)
--- NOTE | 2022-12-29 22:56 | ADMGEN ---
This patient, Delaney Aguirre, was admitted to 2 Medical Room 249-01. Patient/family oriented to hospital policies and general routines including ID bracelet, bed and alarms, visiting hours, pain management, procedures, bathroom and other care routines, personal items, smoking policy, room service/diet, and visiting hours. Information on how to activate the Rapid Response Team has been discussed. Patient/Family are encouraged to report perceived risks to care and to ask questions if they do not understand what they are told or what they should do.
[2022-12-29] MEDS: dilTIAZem HCL CD 240 MG CAP.24HR PO (23:30)
[2022-12-29] MEDS: WARFARIN (*PBKC) 2 MG TABLET PO (23:30)
[2022-12-30] VITALS (10 sets, daily range): BP systolic 125–138; BP diastolic 51–76; PULSE 60–86; RESP 16–20; TEMP 36.3–36.4; O2SAT 93–95
[2022-12-30] MEDS: THYROID 30 MG TABLET 60 MG PO (06:19)
[2022-12-30 06:46] LABS: Basophils Percent Auto 0.4 % (0.2-1.2); Eosinophils Absolute Auto 0.3 K/mm3 (0-0.3); Eosinophils Percent Auto 3.7 % (0-4.4); Hematocrit 40.5 % (37.0-47.0); Hemoglobin 12.7 g/dL (12.0-15.0); Immature Granulocyte Absolute 0.03 K/mm3 (0.00-0.031); Immature Granulocyte Percent A 0.3 % (0-0.5); Lymphocytes Absolute Auto 2.53 K/mm3 (0.9-3.2); Lymphocytes Percent Auto 27.8 % (18.3-44.2); Mean Corpuscular HGB Conc 31.4 g/dl (32-36); Mean Corpuscular Hemoglobin 28.7 pg (26-34); Mean Corpuscular Volume 91.4 fl (80-100); Monocytes Absolute Auto 0.9 K/mm3 (0.1-0.6); Monocytes Percent Auto 10.1 % (2.6-8.5); Neutrophils Absolute Auto 5.2 K/mm3 (1.3-6.7); Neutrophils Percent Auto 57.7 % (45.5-73.1); Platelet Count Result 300 k/mm3 (150-375); Red Blood Count 4.43 M/mm3 (4.2-5.4); Red Cell Distribution Width 14.6 % (11.5-14.5); White Blood Count 9.1 K/mm3 (4.5-10.0)
[2022-12-30 06:57] LABS: Alanine Aminotransferase 17 U/L (6-35); Albumin Level 3.9 g/dL (3.5-5.1); Alkaline Phosphatase 67 U/L (38-126); Anion Gap 6 mmol/L (8-16); Aspartate Amino Transferase 27 U/L (14-36); Bilirubin,Total 0.6 mg/dL (0.2-1.3); Blood Urea Nitrogen 33 mg/dL (7-17); Calcium 9.1 mg/dL (8.4-10.2); Carbon Dioxide 30 mmol/L (22-30); Chloride 105 mmol/L (98-107); Estimated CRCL calculation 28 ml/min; Estimated Glomerular Filt Rate 42; Glucose 105 mg/dL (65-110); Potassium 4.3 mmol/L (3.4-5.0); Sodium 141 mmol/L (137-145)
[2022-12-30] MEDS: FUROSEMIDE INJ 40 MG/4 ML VIAL IV PUSH ×2 (09:51→18:42)
[2022-12-30] MEDS: OPTI-GEN TAB 1 TABLET PO (09:51)
[2022-12-30] MEDS: dilTIAZem HCL CD 240 MG CAP.24HR PO ×2 (11:54→22:59)
--- NOTE | 2022-12-30 12:47 | PM.IMPN ---
Progress Note: A&P Assessment and Plan (1) Heart failure with preserved ejection fraction: Qualifiers: Heart failure chronicity: acute on chronic Qualified Code(s): I50.33 - Acute on chronic diastolic (congestive) heart failure Code(s): I50.30 - Unspecified diastolic (congestive) heart failure Status: Acute Assessment and Plan: Improving with IV diuresis. Prior echocardiogram shows diastolic dysfunction with normal systolic function (2) Acute respiratory failure with hypoxia: Code(s): J96.01 - Acute respiratory failure with hypoxia Status: Acute Assessment and Plan: Improving with IV diuresis. Will attempt to wean to room air. (3) Atrial fibrillation with controlled ventricular response: Code(s): I48.91 - Unspecified atrial fibrillation Status: Acute Assessment and Plan: Controlled ventricular response. Continue home medications. 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 (5) Urinary tract infection: Code(s): N39.0 - Urinary tract infection, site not specified Status: Acute Assessment and Plan: Initiated Rocephin IV while pending urine culture. Plan Continue diuresis, wean to room air, increase activity and discharge when symptoms resolve Time Spent With Patient Time with patient: 25 - 35 minutes Subjective Date/time seen: 12/30/22 12:47 Interval history: Patient presented to the emergency department due to increasing shortness of breath over the weekend. Prior history of CHF. Patient denies any swelling but states that she was getting more short of breath with ambulation. Patient is on diltiazem for rate control of atrial fibrillation. Review of Systems Review of Systems: 12 systems were reviewed with pertinent positives and negatives per HPI. Except as documented in the HPI, all other systems were reviewed and are negative. All systems reviewed & are unremarkable except as noted in HPI and below Exam Narrative: GENERAL: Generally well appearing, alert and oriented, in no apparent distress. She is pleasant and conversant in full sentences. HEENT: Pupils are equally round and briskly reactive to light. Extraocular muscles are intact. Oral mucous membranes are moist without lesions. NECK: The patient has no noted JVD. No adenopathy is appreciated. CHEST/LUNGS: Lungs are clear bilaterally without rhonchi, rales, or wheezes. There is no subcutaneous air appreciated. Supplemental oxygen and place 2 liters/minute nasal cannula HEART: The patient has a regular rate and rhythm. No murmurs, rubs, or gallops are appreciated. Distal pulses are 2+. ABDOMEN: The patient?s abdomen is soft, nontender, and nondistended. Bowel sounds are positive. No peritoneal signs EXTREMITIES: The patient has no peripheral edema. There is no focal long bone tenderness or deformity. SKIN: The patient?s skin is warm and dry, without rashes or lesions. PSYCHIATRIC: The patient has normal mental status and has an appropriate affect. NEUROLOGIC: There are no gross deficits to the cranial nerves. Patient moves all extremities equally 5/5 strength Objective Data Vital Signs Vital Signs: Vital Signs - 24 hr 12/29/22 14:09 12/29/22 17:36 12/29/22 17:42 Temperature 36.8 C Pulse Rate 78 68 Respiratory Rate 18 20 Blood Pressure 130/49 L 147/61 H Pulse Oximetry 93 98 98 Oxygen Delivery Room Air Nasal Cannula Nasal Cannula Oxygen Flow Rate 2 2 12/29/22 18:42 12/29/22 20:25 12/29/22 22:00 Temperature 36.2 C L Pulse Rate 90 84 79 Respiratory Rate 18 18 20 Blood Pressure 137/63 140/62 121/56 L Pulse Oximetry 94 94 98 Oxygen Delivery Oxygen Flow Rate 12/29/22 22:30 12/29/22 22:23 12/30/22 00:00 Temperature Pulse Rate 71 86 Respiratory Rate
[2022-12-30] MEDS: TELMISARTAN 40 MG TABLET PO (18:42)
[2022-12-30] MEDS: WARFARIN (*PBKC) 4 MG TABLET PO (18:42)
[2022-12-31] VITALS: PULSE 94
[2022-12-31 04:00] VITALS: PULSE 76
[2022-12-31 05:35] LABS: Basophils Absolute Auto 0.1 K/mm3 (0.0-0.1); Basophils Percent Auto 0.7 % (0.2-1.2); Eosinophils Absolute Auto 0.4 K/mm3 (0-0.3); Eosinophils Percent Auto 4.5 % (0-4.4); Hematocrit 37.9 % (37.0-47.0); Hemoglobin 12.1 g/dL (12.0-15.0); Immature Granulocyte Absolute 0.02 K/mm3 (0.00-0.031); Immature Granulocyte Percent A 0.2 % (0-0.5); Lymphocytes Percent Auto 25.8 % (18.3-44.2); Mean Corpuscular HGB Conc 31.9 g/dl (32-36); Mean Corpuscular Hemoglobin 28.9 pg (26-34); Mean Corpuscular Volume 90.5 fl (80-100); Mean Platelet Volume 10.8 fl (7.4-10.4); Monocytes Absolute Auto 0.9 K/mm3 (0.1-0.6); Monocytes Percent Auto 10.8 % (2.6-8.5); Neutrophils Absolute Auto 4.7 K/mm3 (1.3-6.7); Platelet Count Result 273 k/mm3 (150-375); Red Blood Count 4.19 M/mm3 (4.2-5.4); Red Cell Distribution Width 14.4 % (11.5-14.5); White Blood Count 8.2 K/mm3 (4.5-10.0)
[2022-12-31 05:45] LABS: INR 3.1; Prothrombin Time 34.3 Seconds (11.1-14.7)
[2022-12-31 05:55] LABS: Alanine Aminotransferase 18 U/L (6-35); Albumin Level 3.6 g/dL (3.5-5.1); Alkaline Phosphatase 66 U/L (38-126); Anion Gap 6 mmol/L (8-16); Aspartate Amino Transferase 28 U/L (14-36); Bilirubin,Total 0.5 mg/dL (0.2-1.3); Blood Urea Nitrogen 35 mg/dL (7-17); Calcium 8.7 mg/dL (8.4-10.2); Carbon Dioxide 29 mmol/L (22-30); Chloride 102 mmol/L (98-107); Estimated CRCL calculation 24 ml/min; Estimated Glomerular Filt Rate 35; Glucose 102 mg/dL (65-110); Potassium 3.7 mmol/L (3.4-5.0); Sodium 137 mmol/L (137-145)
[2022-12-31 06:00] VITALS: BP 104/50; PULSE 76; RESP 18; TEMP 36.6; O2SAT 96
[2022-12-31] MEDS: THYROID 30 MG TABLET 60 MG PO (06:15)
[2022-12-31] MEDS: OPTI-GEN TAB 1 TABLET PO (08:59)
[2022-12-31] MEDS: FUROSEMIDE INJ 40 MG/4 ML VIAL IV PUSH (09:00)
[2022-12-31] MEDS: dilTIAZem HCL CD 240 MG CAP.24HR PO (11:10)
--- NOTE | 2022-12-31 11:44 | PM.DS ---
DS: Admitting Diagnosis Discharge Date 12/31/2022 Admitting Diagnosis Acute on chronic diastolic congestive heart failure, acute respiratory failure with hypoxia, atrial fibrillation with controlled ventricular response, long-term current use of anticoagulants DS: Discharge Diagnosis Discharge Diagnosis (1) Heart failure with preserved ejection fraction: Qualifiers: Heart failure chronicity: acute on chronic Qualified Code(s): I50.33 - Acute on chronic diastolic (congestive) heart failure Code(s): I50.30 - Unspecified diastolic (congestive) heart failure Status: Acute Assessment and Plan: Acute on chronic diastolic congestive heart failure (2) Acute respiratory failure with hypoxia: Code(s): J96.01 - Acute respiratory failure with hypoxia Status: Acute (3) Atrial fibrillation with controlled ventricular response: Code(s): I48.91 - Unspecified atrial fibrillation Status: Acute (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 Hospital Course: This is an independent 87-year-old female patient who was admitted to the hospital due to difficulty breathing requiring oxygen 1st. She was found to have exacerbation of diastolic congestive heart failure. Her situation improved significantly with IV diuresis. She was no longer requiring oxygen for 24 hours. Patient also had complaint constipation was able to finally pass stool today. Patient was found to have a urinary tract infection with urine culture positive for E coli that was resistant only to for quinolones. Patient has a penicillin and sulfa allergy but had tolerated Rocephin in the hospital. She was discharged with cefdinir twice daily for 5 days. Patient stated that she needed refills for telmisartan and [place] Thyroid. Status at Discharge Cognitive/behavioral status at discharge: Awake alert oriented and very pleasant Functional status at discharge: independent ambulation Overall status at discharge: patient is back to baseline Time Spent with Patient Time attestation: Total time spent providing and/or coordinating discharge services: 35 minutes Time spent: Greater than 30 minutes Exam Narrative: GENERAL: Generally well appearing, alert and oriented, in no apparent distress. She is pleasant and conversant in full sentences. HEENT: Pupils are equally round and briskly reactive to light. Extraocular muscles are intact. Oral mucous membranes are moist without lesions. NECK: The patient has no noted JVD. No adenopathy is appreciated. CHEST/LUNGS: Lungs are clear bilaterally without rhonchi, rales, or wheezes. HEART: The patient has a regular rate and rhythm. No murmurs, rubs, or gallops are appreciated. Distal pulses are 2+. ABDOMEN: The patient?s abdomen is soft, nontender, and nondistended. Bowel sounds are positive. No peritoneal signs EXTREMITIES: The patient has no peripheral edema. There is no focal long bone tenderness or deformity. SKIN: The patient?s skin is warm and dry, without rashes or lesions. PSYCHIATRIC: The patient has normal mental status and has an appropriate affect. NEUROLOGIC: There are no gross deficits to the cranial nerves. Patient moves all extremities equally 5/5 strength DS: Data Data Completed and Pending Completed studies during hospitalization: Chest x-ray Labs on day of discharge: Labs from last 24 hours 12/31/22 05:14 WBC 8.2 RBC 4.19 L Hgb 12.1 Hct 37.9 MCV 90.5 MCH 28.9 MCHC 31.9 L RDW 14.4 Plt Count 273 MPV 10.8 H
--- NOTE | 2022-12-31 13:10 | PC.NURSE ---
On 12/31/22, the student, [Janice Romero], provided care and completed [facility] documentation on this patient. I have reviewed the student's documentation and agree with the findings.
== END 2022-12-31 13:00 | disposition home or self-care (01) ==
LOC: ANHED 19:00 → ANH2MED 20:53
PROVIDERS: Emergency Medicine; Nurse Practitioner; Nurse Practitioner Family; Admitting Provider Internal Medicine; Emergency Provider General Practice; PCP Family Medicine; Visit Provider Internal Medicine
DX: I13.0 Hypertensive heart and chronic kidney disease with heart failure and stage 1 through stage 4 chronic kidney disease, or unspecified chronic kidney disease (principal); I50.33 Acute on chronic diastolic (congestive) heart failure; N18.30 Chronic kidney disease, stage 3 unspecified; J96.01 Acute respiratory failure with hypoxia; I48.20 Chronic atrial fibrillation, unspecified; N39.0 Urinary tract infection, site not specified; B96.20 Unspecified Escherichia coli [E. coli] as the cause of diseases classified elsewhere; E78.2 Mixed hyperlipidemia; R60.0 Localized edema; Z20.822 Contact with and (suspected) exposure to COVID-19; R94.31 Abnormal electrocardiogram [ECG] [EKG]; J98.11 Atelectasis; J84.9 Interstitial pulmonary disease, unspecified; E03.9 Hypothyroidism, unspecified; E66.9 Obesity, unspecified; Z68.36 Body mass index [BMI] 36.0-36.9, adult; H35.30 Unspecified macular degeneration; Z66 Do not resuscitate; Z79.01 Long term (current) use of anticoagulants; Z79.899 Other long term (current) drug therapy
CPT/HCPCS: 36415; 71046; 80053; 81001; 83880; 84484; 85025; 85610; 87077; 87086; 87186; 87635; 93005; 96365; 96374; 96375; 96376; 99291; A9270; G0378; J0696; J1940

== ENCOUNTER 2023-07-05 09:31 | Outpatient (RCR) | payer MEDICARE, SELFPAY ==
[2023-05-26 11:10] LABS: INR 1.4; Prothrombin Time 18.4 Seconds (11.1-14.7)
[2023-07-05 10:42] LABS: INR 1.4; Prothrombin Time 17.8 Seconds (11.1-14.7)
== END 2023-08-24 23:59 | disposition home or self-care (01) ==
LOC: ANHLAB 09:31
PROVIDERS: PCP Family Medicine; Visit Provider Internal Medicine Cardiovascular Disease
DX: Z51.81 Encounter for therapeutic drug level monitoring (principal); Z79.01 Long term (current) use of anticoagulants
CPT/HCPCS: 36415; 85610

== ENCOUNTER 2023-07-27 11:39 | Outpatient (CLI) | payer MEDICARE, SELFPAY ==
[2023-07-27 12:06] LABS: Hematocrit 47.5 % (37.0-47.0); Hemoglobin 14.8 g/dL (12.0-15.0); Mean Corpuscular HGB Conc 31.2 g/dl (32-36); Mean Corpuscular Hemoglobin 29.7 pg (26-34); Mean Corpuscular Volume 95.4 fl (80-100); Mean Platelet Volume 11.9 fl (7.4-10.4); Platelet Count Result 204 k/mm3 (150-375); Red Blood Count 4.98 M/mm3 (4.2-5.4); Red Cell Distribution Width 14.8 % (11.5-14.5); White Blood Count 9.1 K/mm3 (4.5-10.0)
[2023-07-27 12:16] LABS: Alanine Aminotransferase 16 U/L (6-35); Albumin Level 4.6 g/dL (3.5-5.1); Alkaline Phosphatase 69 U/L (38-126); Anion Gap 6 mmol/L (4-12); Aspartate Amino Transferase 29 U/L (14-36); Bilirubin,Total 0.8 mg/dL (0.2-1.3); Blood Urea Nitrogen 39 mg/dL (7-17); Calcium 9.8 mg/dL (8.4-10.2); Carbon Dioxide 29 mmol/L (22-30); Chloride 105 mmol/L (98-107); Estimated Glomerular Filt Rate 47; Glucose 99 mg/dL (65-110); Potassium 4.2 mmol/L (3.4-5.0); Sodium 140 mmol/L (137-145)
== END 2023-07-27 11:40 | disposition home or self-care (01) ==
LOC: ANHLAB 11:42
PROVIDERS: PCP Family Medicine; Visit Provider Family Medicine
DX: E03.9 Hypothyroidism, unspecified (principal); I50.9 Heart failure, unspecified; R53.83 Other fatigue; R06.00 Dyspnea, unspecified; I12.9 Hypertensive chronic kidney disease with stage 1 through stage 4 chronic kidney disease, or unspecified chronic kidney disease; N18.9 Chronic kidney disease, unspecified
CPT/HCPCS: 36415; 80053; 84443; 85027

== ENCOUNTER 2023-08-02 14:57 | Outpatient (RCR) | payer MEDICARE, SELFPAY ==
[2023-07-27 12:18] LABS: INR 1.5; Prothrombin Time 19.3 Seconds (11.1-14.7)
[2023-08-02 15:34] LABS: INR 2.2; Prothrombin Time 26.4 Seconds (11.1-14.7)
== END 2023-10-25 23:59 | disposition home or self-care (01) ==
LOC: ANHLAB 14:57
PROVIDERS: PCP Family Medicine; Referring Provider Nurse Practitioner Adult Health; Visit Provider Internal Medicine Cardiovascular Disease
DX: Z51.81 Encounter for therapeutic drug level monitoring (principal); I48.19 Other persistent atrial fibrillation; Z79.01 Long term (current) use of anticoagulants
CPT/HCPCS: 36415; 80053; 84443; 85027; 85610

== ENCOUNTER 2023-09-23 14:46 | Outpatient (RCR) | payer MEDICARE, SELFPAY ==
[2023-09-23 15:32] LABS: INR 2.6; Prothrombin Time 28.2 Seconds (11.1-14.7)
== END 2023-12-22 23:59 | disposition home or self-care (01) ==
LOC: ANHLAB 14:46
PROVIDERS: PCP Family Medicine; Visit Provider Internal Medicine Cardiovascular Disease
DX: Z51.81 Encounter for therapeutic drug level monitoring (principal); I48.19 Other persistent atrial fibrillation; Z79.01 Long term (current) use of anticoagulants
CPT/HCPCS: 36415; 85610

== ENCOUNTER 2023-12-30 15:19 | Outpatient (RCR) | payer MEDICARE, SELFPAY ==
[2023-11-02 10:47] LABS: INR 2.6; Prothrombin Time 28.5 Seconds (11.1-14.7)
[2023-12-30 16:14] LABS: INR 2.5; Prothrombin Time 27.6 Seconds (11.1-14.7)
== END 2024-01-31 23:59 | disposition home or self-care (01) ==
LOC: ANHLAB 15:19
PROVIDERS: PCP Family Medicine; Visit Provider Internal Medicine Cardiovascular Disease
DX: Z51.81 Encounter for therapeutic drug level monitoring (principal); I48.19 Other persistent atrial fibrillation; Z79.01 Long term (current) use of anticoagulants
CPT/HCPCS: 36415; 85610

== ENCOUNTER 2024-03-08 13:57 | Outpatient (RCR) | payer MEDICARE, SELFPAY ==
[2024-02-03 15:30] LABS: INR 2.5; Prothrombin Time 27.6 Seconds (11.1-14.7)
[2024-03-08 14:33] LABS: Prothrombin Time 31.7 Seconds (11.1-14.7)
== END 2024-05-03 23:59 | disposition home or self-care (01) ==
LOC: ANHLAB 13:57
PROVIDERS: PCP Family Medicine; Visit Provider Internal Medicine Cardiovascular Disease
DX: Z51.81 Encounter for therapeutic drug level monitoring (principal); I48.19 Other persistent atrial fibrillation; Z79.01 Long term (current) use of anticoagulants
CPT/HCPCS: 36415; 85610

== ENCOUNTER 2024-08-02 10:41 | Outpatient (RCR) | payer MEDICARE, SELFPAY ==
[2024-05-11 16:06] LABS: INR 2.3; Prothrombin Time 25.6 Seconds (11.1-14.7)
[2024-08-02 12:18] LABS: INR 3.1; Prothrombin Time 32.5 Seconds (11.1-14.7)
== END 2024-08-09 23:59 | disposition home or self-care (01) ==
LOC: ANHLAB 10:41
PROVIDERS: PCP Family Medicine; Visit Provider Internal Medicine Cardiovascular Disease
DX: Z51.81 Encounter for therapeutic drug level monitoring (principal); I48.19 Other persistent atrial fibrillation; Z79.01 Long term (current) use of anticoagulants
CPT/HCPCS: 36415; 80053; 84439; 84443; 85027; 85610

== ENCOUNTER 2024-08-02 10:44 | Outpatient (CLI) | payer MEDICARE, SELFPAY ==
[2024-08-02 12:01] LABS: Hematocrit 46.5 % (37.0-47.0); Hemoglobin 14.1 g/dL (12.0-15.0); Mean Corpuscular HGB Conc 30.3 g/dl (32-36); Mean Corpuscular Hemoglobin 28.8 pg (26-34); Mean Corpuscular Volume 94.9 fl (80-100); Mean Platelet Volume 11.9 fl (7.4-10.4); Platelet Count Result 215 k/mm3 (150-375); Red Cell Distribution Width 14.2 % (11.5-14.5); White Blood Count 8.8 K/mm3 (4.5-10.0)
--- OUTSIDE RECORDS SUMMARY | 2024-08-02 12:01 | XMS_ITS | Encounter Summary ---
Author Organization [facility] Healthcare Address [address] [place] [address] Care Team Providers Care Air Conditioner Installer Helper Name Role Phone Kendrick Ambriz MD Primary Care Provider Encounter Details Date Type Department Care Team (Late st Contact Info) Description 07/05/2023 Orders Only [facility] Health Information Management [address] [place] [address] Scanning, Provider Social History Tobacco Use Types Packs/Day Years Used Date Smoking Tobacco: Never Smokeless Tobacco: Never Alcohol Use Standard Drinks/Week Comments No 0 (1 standard drink = 0.6 oz pur e alcohol) Comments Unknown Sex and Gender Information Value Date Recorded Sex Assigned at Not on file Legal Sex Female 12:32 AM SOCIAL 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 PROJECT MANAGER Gender Identity Not on file Sexual Orientation Straight 09/24/2020 8: 42 AM CDT documented as of this encounter Plan of Treatment Not on file documented as of this encounter Procedures Procedure Name Priority Date/Time Associated Diagnosis Comments SCAN - LABS 07/05/2023 documented in this encounter Results * SCAN - LABS (07/05/2023) us Provider Scanning Final Result documented in this encounter Visit Diagnoses Not on filedocumented in this encounter Care Teams Air Conditioner Installer Helper Relationship Specialty Start Date End Date Kendrick Ambriz MD [address] [facility] [address] [place], [place] [id number] PCP - General 07/03/16 documented as of this encounter
--- OUTSIDE RECORDS SUMMARY | 2024-08-02 12:01 | XMS_ITS | Encounter Summary ---
Author Organization [facility] Healthcare Address [address] [place] [address] Care Team Providers Care Survey Researcher Name Role Phone Kendrick Ambriz MD Primary Care Provider Encounter Details Date Type Department Care Team (Late st Contact Info) Description 07/27/2023 Orders Only [facility] Health Information Management [address] [place] [address] Scanning, Provider Social History Tobacco Use Types Packs/Day Years Used Date Smoking Tobacco: Never Smokeless Tobacco: Never Alcohol Use Standard Drinks/Week Comments No 0 (1 standard drink = 0.6 oz pur e alcohol) Comments Unknown Sex and Gender Information Value Date Recorded Sex Assigned at Not on file Legal Sex Female 12:32 AM RN PLAS[facility] Gender Identity Not on file Sexual Orientation Straight 09/24/2020 8: 42 AM CDT documented as of this encounter Plan of Treatment Not on file documented as of this encounter Procedures Procedure Name Priority Date/Time Associated Diagnosis Comments SCAN - LABS 07/27/2023 documented in this encounter Results * SCAN - LABS (07/27/2023) us Provider Scanning Final Result documented in this encounter Visit Diagnoses Not on filedocumented in this encounter Care Teams Survey Researcher Relationship Specialty Start Date End Date Kendrick Ambriz MD [address] [facility] [address] [place], [place] [phone] PCP - General 07/03/16 documented as of this encounter
--- OUTSIDE RECORDS SUMMARY | 2024-08-02 12:01 | XMS_ITS | Continuity of Care Document ---
Author Organization [facility] Address [address] [place] [address] [address] [place] [address] Phone Care Team Providers Care Windows Server Specialist Name Role Phone Stewart OD, Dante Unavailable Unavailable Advance Directives Directive Yes / No Effective Date File Name No Information Encounters Encounter Description Practice Location Reason(s) For Visit Diagnoses Date Provider Providers Copied on Encounter [facility], [address], [place], [place], [id number], [place] tel:[phone] [facility] ([facility]) No Information May-2 2-200 1 Stewart OD Dante. [address] , [address], [place], [address], [place]. tel:[phone] Family History Family Member Type Diagnosis Age At Onset No Information Payers Payer name Insurance type Covered republican ID Authoriza tion(s) [place] [id number] General [employer] CI [id number] Social History Type Description Quantity Date Captured Comments Sex Female Smoking Status No Information Chief Complaint And Reason For Visit No Information Reason For Referral Reason For Referral No Information History Of Present Illness Encounter Date Complaint History Of Prese nt Illness No Information Functional Status Date Functional Assessmen t No Information Instructions Date Instruction Additional Infor mation No Information Assessments Type Assessment Date No Information Patient Care Teams Name Effective Dates (start - stop) Status Members No Information
--- OUTSIDE RECORDS SUMMARY | 2024-08-02 12:02 | XMS_ITS | Referral Summary ---
Author Organization [facility] – [place] [address] [facility] [address] Address [address] [place] [address] Care Team Providers Care Roto Mixer Operator Name Role Phone Kendrick Ambriz MD Primary Care Provider Encounters Date Type Department Care Team Description 05/12/2024 Anticoagulation Visit [facility] Medical [facility] Cardiology [address] [facility] [address] [place] [address] Jose Bolden RN Persistent atrial fibrillation (HCC) (Primary Dx) 05/11/2024 2:30 PM EXCHANGE ADMINISTRATOR Office Visit [facility] Cardiology [address] [place] [address] [address] [place] [address] Vicki Jones NP Persistent atrial fibrillation (HCC); Chronic anticoagulation; Severe obesity (HCC); Chronic diastolic heart failure (HCC); Chronic venous insufficiency; Essential hypertension; Stage 3b chronic kidney disease (HCC) from Last 3 Months Allergies Active Allergy Reactions Criticality Noted Date Comments Erythromycin Ethyl Alcohol Unknown Levothyroxine Sodium Unknown Metoprolol Angioedema Reaction: Angioedema, Penicillins Sulfa (Sulfonamide Antibiotics) Medications thyroid (ARMOUR THYROID) 60 mg tablet Take one by mouth one time per day 0 0 02/29/20 07 Active calcium 500 mg tablet Take one by mouth two times per day 0 0 09/19/19 08 Active Additional Information Patient taking differently:500 mgoral Daily, Reported on 05/11/2024 glucosamine-chondro it-vit C-Mn capsule Take according to [id number] r package directions 0 0 09/19/19 08 Active LUTEIN-ZEAXANTHIN ORAL Take 20 mg by mouth Active telmisartan (MICARDIS) 40 mg tablet 01/13/20 23 Active furosemide (LASIX) 40 mg tabletIndications:C hronic venous insufficiency Take 1 tablet (40 mg total) by mouth daily 90 tablet 3 05/11/19 25 Active dilTIAZem XR (dilTIAZem CD) 240 mg 24 hr capsuleIndications: Ventricular Rate Control in Atrial Fibrillation Take 1 capsule (240 mg total) by mouth 2 (two) times a day 180 capsule 3 05/11/19 25 Active warfarin (COUMADIN) 4 mg tabletIndications:C hronic anticoagulation Take 1 tablet (4 mg total) by mouth daily 90 tablet 3 05/11/19 25 Active Active Problems Problem Noted Date Diagnosed Date Severe obesity 05/11/2024 Class 2 obesity 02/10/2023 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 Noncompliance with diagnostic test 02/10/2023 Chronic diastolic heart failure 02/10/2023 Stage 3b chronic kidney disease 10/01/2020 Chronic venous insufficiency 01/06/2017 Chronic anticoagulation 01/06/2017 Persistent atrial fibrillation 08/19/2013 Overview (07/10/2016): ATRIAL FIBRILLATION Essential hypertension 08/19/2013 Overview (07/10/2016): HYPERTENSION NOS Resolved Problems Problem Noted Date Diagnosed Date Resolved Date BMI 40.0-44.9, adult 01/06/2017 023 Body mass index 40+ - severely obese 05/21/2016 01/06/2017 Overview (07/10/2016): Morbid obesity with BMI of 40.0-44.9, adult History of anticoagulant therapy 08/19/2013 01/06/2017 Overview (07/09/2016): LONG-TERM USE ANTICOAGUL Social History Tobacco Use Types Packs/Day Years Used Date Smoking Tobacco: Never Smokeless Tobacco: Never Alcohol Use Standard Drinks/Week Comments No 0 (1 standard drink = 0.6 oz pur e alcohol) Comments Unknown Sex and Gender Information Value Date Recorded Sex Assigned at Not on file Legal Sex Female 12:32 AM EXCHANGE ADMINISTRATOR Gender Identity Not on file Sexual Orientation Straight 09/24/2020 8: 42 AM CDT Last Filed Vital Signs Vital Sign Reading Time Taken Comments Blood Pressure 128/60 05/11/2024 2:32 PM EXCHANGE ADMINISTRATOR Pulse 92 05/11/2024 2:32 PM EXCHANGE ADMINISTRATOR Temperature - - Respiratory Rate 16 01/06/2017 1:05 PM CDT Oxygen Saturation 97% 05/11/2024 2:32 PM EXCHANGE ADMINISTRATOR Inhaled Oxygen Concentration - - Weight 89.4 kg (197 lb) 05/11/2024 2:32 PM EXCHANGE ADMINISTRATOR Height 152.4 cm (5') 05/11/2024 2:32 PM EXCHANGE ADMINISTRATOR Body Mass Index 38.47 05/11/2024 2:32 PM EXCHANGE ADMINISTRATOR Plan of Treatment Not on file Procedures Procedure Name Priority Date/Time Associated Diagnosis Comments PROTIME-INR Routine 05/11/2024 from Last 3 Months Results * (ABNORMAL) Protime-INR (05/11/2024) INR 2.30(A) 0.90 - 1.10 EXTERNAL LAB Blood us Historical Provider LAB BLOOD ORDERABLES Shelly mcclain Result EXTERNAL LAB from Last [address] [place] [address] MEDICARE MEDICARE [facility] MEDICARE SUPPLEMENT Care Teams Roto Mixer Operator Relationship Specialty Start Date End Date Kendrick Ambriz MD [address] [facility] [address] [place] [address] PCP - General 07/03/16
--- OUTSIDE RECORDS SUMMARY | 2024-08-02 12:02 | XMS_ITS | Clinical Summary ---
Author Organization [facility] [place] [address] Address [address] [place] [address] Care Team Providers Care Learning And Development Coordinator Name Role Phone Kendrick Ambriz MD Primary Care Provider Allergies Active Allergy Reactions Criticality Noted Date [...] glucosamine-chondro it-vit C-Mn capsule Take according to [id number] r package directions 0 0 09/19/19 08 [...] 08/19/2013 01/06/2017 Overview (07/09/2016): LONG-TERM USE ANTICOAGUL Encounters Date Type Department Care Team Description 05/12/2024 Anticoagulation Visit [facility] Medical [facility] Cardiology [address] [facility] [address] [place] [phone] Jose Bolden RN Persistent atrial fibrillation (HCC) (Primary Dx) 05/11/2024 2:30 PM EXPENSE CLERK Office Visit [facility] Cardiology [address] [place] [address] [address] [place] [phone] Vicki Jones NP Persistent atrial fibrillation (HCC); Chronic anticoagulation; Severe obesity (HCC); Chronic diastolic heart failure (HCC); Chronic venous insufficiency; Essential hypertension; Stage 3b chronic kidney disease (HCC) from Last 3 Months Surgical History Surgery Date Site/Laterality Comments CATARACT EXTRACTION, BILATERAL Bilateral Cataract Surgery CATARACT EXTRACTION FRACTURE SURGERY Medical History Medical History Date Comments Hx Other Medical Back pain Hypothyroidism Hypothyroidism Arthritis Hypertension Family History Medical History Relation Name Comments Other Father 2 when she w as 2 yrs; Other Mother 2 Poss brain hemm rhage; Cause of : Poss brain hemmrhage Relation Name Status Comments Father 1 Alive Father 2 Mother 1 (Age 87) Mother 2 Social History Tobacco Use Types Packs/Day Years Used Date Smoking Tobacco: Never Smokeless Tobacco: Never Alcohol Use Standard Drinks/Week Comments No 0 (1 standard drink = 0.6 oz pur e alcohol) Comments Unknown Sex and Gender Information Value Date Recorded Sex Assigned at Not on file Legal Sex Female 12:32 AM EXPENSE CLERK Gender Identity Not on file Sexual Orientation Straight 09/24/2020 8: 42 AM CDT Obstetrics History Last Filed Vital Signs Vital Sign Reading Time Taken Comments Blood Pressure 128/60 05/11/2024 2:32 PM EXPENSE CLERK Pulse 92 05/11/2024 2:32 PM EXPENSE CLERK Temperature - - Respiratory Rate 16 01/06/2017 1:05 PM CDT Oxygen Saturation 97% 05/11/2024 2:32 PM EXPENSE CLERK Inhaled Oxygen Concentration - - Weight 89.4 kg (197 lb) 05/11/2024 2:32 PM EXPENSE CLERK Height 152.4 cm (5') 05/11/2024 2:32 PM EXPENSE CLERK Body Mass Index 38.47 05/11/2024 2:32 PM EXPENSE CLERK Plan of Treatment Health Maintenance Due Date Last Done Comments Depression Screening 1934 Fall Risk Assessment 1934 DTaP/Tdap/Td Vaccine (1 - Tdap) 1945 Hepatitis B Screening 1952 Pneumococcal vaccine 65+ (1 of 2 - PCV) 1953 Zoster Vaccine (1 of 2) 1984 Well Visit 65+ 09/18/1999 Influenza Vaccine (Season Ended) 2024 Procedures Procedure Name Priority Date/Time Associated Diagnosis Comments PROTIME-INR Routine 05/11/2024 from Last 3 Months Results * (ABNORMAL) Protime-INR (05/11/2024) INR 2.30(A) 0.90 - 1.10 EXTERNAL LAB Blood us Historical Provider LAB BLOOD ORDERABLES Shelly mcclain Result EXTERNAL LAB from Last 3 Months Insurance MEDICARE MEDICARE [facility] MEDICARE SUPPLEMENT Care Teams Learning And Development Coordinator Relationship Specialty Start Date End Date Kendrick Ambriz MD [address] [facility] [address] [place] [address] PCP - General 07/03/16
[2024-08-02 12:11] LABS: Alanine Aminotransferase 18 U/L (6-35); Albumin Level 4.3 g/dL (3.5-5.1); Alkaline Phosphatase 82 U/L (38-126); Anion Gap 10 mmol/L (4-12); Aspartate Amino Transferase 25 U/L (14-36); Bilirubin,Total 0.5 mg/dL (0.2-1.3); Blood Urea Nitrogen 40 mg/dL (7-17); Calcium 9.2 mg/dL (8.4-10.2); Carbon Dioxide 29 mmol/L (22-30); Chloride 101 mmol/L (98-107); Estimated Glomerular Filt Rate 36; Glucose 105 mg/dL (65-110); Potassium 4.3 mmol/L (3.4-5.0); Sodium 140 mmol/L (137-145)
[2024-08-02 12:25] LABS: Free T4 Free Thyroxine 0.73 ng/dL (0.78-2.19)
== END 2024-08-02 10:45 | disposition home or self-care (01) ==
LOC: ANHLAB 10:45
PROVIDERS: PCP Family Medicine; Referring Provider Family Medicine; Visit Provider Student in an Organized Health Care Education/Training Program
DX: E03.9 Hypothyroidism, unspecified (principal); I50.9 Heart failure, unspecified; I48.91 Unspecified atrial fibrillation; E78.2 Mixed hyperlipidemia; R53.83 Other fatigue
CPT/HCPCS: 36415; 80053; 84439; 84443; 85027